=== PATIENT | male | born 1950 | race Caucasian/White ===

== ENCOUNTER 2017-06-10 16:47 | Emergency (ER) | payer MEDICARE ==
[2017-06-10] MEDS ORDERED: Caffeine Citrated 60 MG/3 ML VIAL PO SCH (17:30)
[2017-06-10] MEDS ORDERED: Ketorolac Tromethamine 30 MG/ML VIAL ONE (17:47)
[2017-06-11] MEDS ORDERED: Ketorolac Tromethamine 30 MG/ML VIAL ONE (00:50)
[2017-06-11] MEDS ORDERED: Caffeine Citrated 60 MG/3 ML VIAL PO SCH (01:00)
== END 2017-06-11 02:06 | disposition home or self-care (01) ==
LOC: ERS 16:47
DX: G97.1 Other reaction to spinal and lumbar puncture (principal); E11.9 Type 2 diabetes mellitus without complications; E03.9 Hypothyroidism, unspecified; I10 Essential (primary) hypertension; Z79.84 Long term (current) use of oral hypoglycemic drugs; Z79.899 Other long term (current) drug therapy
CPT/HCPCS: 96361; 96374; 96376; J1885

== ENCOUNTER 2017-07-02 09:46 | Observation (INO) | payer MEDICARE ==
[2017-07-02 10:40] LABS: #Basophils 0.1 thou/uL (0.0-0.2); #Eosinphils 0.2 thou/uL (0.0-0.7); #Lymphocytes 1.5 thou/uL (1.20-3.40); #Monocytes 0.7 thou/uL (0.11-0.59); #Neutrophils 6.4 thou/uL (1.40-6.50); %Basophils 1.4 % (0.0-1.0); %Lymphocytes 16.6 % (21.0-51.0); %Monocytes 8.1 % (0.0-10.0); Hematocrit 40.3 % (42.0-52.0); Mean Platelet Volume 6.6 fL (7.4-10.4); Red Blood Cell (RBC) Count 4.47 mill/uL (4.70-6.10); White Blood Cell (WBC) Count 8.9 thou/uL (4.8-10.8)
[2017-07-02 10:47] LABS: ALT (SGPT) 19 U/L (8-55); AST (SGOT) 10 U/L (5-34); Alkaline Phosphatase 106 U/L (40-150); Anion Gap 15 mmol/L (10-20); BUN (Urea Nitrogen) 31 mg/dL (8.4-25.7); Bilirubin, Total 0.4 mg/dL (0.2-1.2); CK (CPK) 54 U/L (30-200); Calc. Creatinine Clearance 0 mL/min (70-130); Calcium 9.5 mg/dL (7.8-10.44); Carbon Dioxide 24 mmol/L (23-31); Chloride 99 mmol/L (98-107); Estimated GFR-MDRD 32; Globulin 3.4 g/dL (2.4-3.5)
[2017-07-02 10:53] LABS: Troponin I Less than 0.010 ng/mL (< 0.028)
--- NOTE | 2017-07-02 10:59 | RAD ---
CHEST ONE VIEW: HISTORY: Chest pain. COMPARISON: Chest, one view, from 2014. FINDINGS: Some mild linear opacities in both lung bases. Some mild volume loss. No pneumothorax. The cardiac silhouette and mediastinal contours are similar. IMPRESSION: Linear opacities in both lung bases are new from the comparison examination and may represent focal areas of atelectasis. Follow-up two views of the chest recommended, non-emergently. POS: [facility]
--- NOTE | 2017-07-02 11:02 | RAD ---
RIGHT SHOULDER THREE VIEWS: HISTORY: A 66-year-old male with chest pain with extension of the pain into his right chest, right shoulder, and right arm. FINDINGS: Degenerative changes of the right AC joint and glenohumeral joint. No acute fracture or dislocation . There are some small, very faint, periarticular opacities, possibly some chondrocalcinosis. A somewhat triangular-shaped opacity in the right lower chest, nonspecific. IMPRESSION: Degenerative and osteoarthrosis changes, right shoulder, without acute fracture or dislocation. Manuel e scattered minimal articular or periarticular opacities, possibly some chondrocalcinosis. No acute fracture or dislocation. POS: [facility]
[2017-07-02] MEDS ORDERED: Nitroglycerin 2% Ointment 1 INCH/1 GM Packet ONE (12:28)
[2017-07-02] MEDS ORDERED: Aspirin 325 MG TAB ONE (12:28)
[2017-07-02 14:03] VITALS: BMI 37.1
[2017-07-02 14:29] LABS: Troponin I Less than 0.010 ng/mL (< 0.028)
[2017-07-02 17:07] LABS: Troponin I Less than 0.010 ng/mL (< 0.028)
[2017-07-02] MEDS ORDERED: Dextrose 50% Abboject 50 ML SYRINGE IVP PRN (17:33)
[2017-07-02] MEDS ORDERED: Insulin Regular 300 UNITS/3 ML VIAL SC PRN (17:33)
[2017-07-02] MEDS ORDERED: Dextrose 5% in Water 1,000 ML IV PRN ×2 (17:33→18:50)
[2017-07-02] MEDS: Nitroglycerin 2% Ointment 1 INCH/1 GM Packet TOP SCH (18:11)
[2017-07-02] MEDS: Insulin Regular 300 UNITS/3 ML VIAL SC PRN (18:12)
--- NOTE | 2017-07-02 18:12 | NM ---
VQ SCAN: 07/02/17 HISTORY: Elevated D-dimer. TECHNIQUE: A ventilation perfusion scan was performed using 9 millicuries Xenon 133 by inhalation for the venti lation study followed by the intravenous administration of 6.2 millicuries technetium 99m-MAA for th e perfusion scan. Correlation is made with a chest radiograph the same day. There is homogeneous tracer distribution to the lungs on both the ventilation and perfusion scans wi thout mismatched defects. No tracer retention is seen on the washout phase of the ventilation study. IMPRESSION: Normal exam. POS: [facility]
[2017-07-02] MEDS ORDERED: Ondansetron HCl/PF 4 MG/2 ML Vial IVP PRN (18:15)
[2017-07-02] MEDS ORDERED: Mag-Al 1200 mg/1200 mg/30 ML UDCUP PO PRN (18:15)
[2017-07-02] MEDS ORDERED: Dextrose 50% Abboject 50 ML SYRINGE SLOW IVP PRN (18:50)
[2017-07-02] MEDS: traMADol HCl 50 MG TAB PO PRN (19:53)
[2017-07-02] MEDS: Acetaminophen 325 MG TAB PO PRN (19:53)
[2017-07-02] MEDS: glipiZIDE 5 MG TAB PO SCH (19:55)
[2017-07-02] MEDS: Sodium Chloride 0.9% 1,000 ML IV SCH (19:55)
--- NOTE | 2017-07-02 20:37 | PDOC.EVN ---
Event Note - Event Note Event Note: Mr Duarte [place] [facility] [place] of right sided chest discomfort spreading to his Right arm for the last 4 days. The pain is reproducible by moving his RUE with ROM manuevers. He also has tenderness in his wrist and finger joints. Additionally he complains of point tenderness in the lumbar region. His troponins thus far are negative and with no EKGs, ACS less likely but will continue to monitor on telemetry. He has an elevated D-Dimer but his V/ Q is normal. He has no hemodynamic changes nor does he have a widened mediastinum. Will check BP on both extremities and continue to monitor. An ESR has been ordered. He may require further imaging of his Lumbar or thoracic spine to rule out diskitis or an inflammatory process.
--- NOTE | 2017-07-02 20:47 | HP ---
DATE OF OBSERVATION: 07/02/2017 PRIMARY CARE PHYSICIAN: Dr. Kim Quinonez. REASON FOR OBSERVATION PLACEMENT: Chest discomfort as well as back pain and right upper extremity w eakness and swelling. HISTORY OF PRESENT ILLNESS: Mr. Tyler Duarte is a 66-year-old male with a history of mild coronary ar scarlet disease per cardiac catheterization in 2013, hypertension, hyperlipidemia, diabetes mellitus ty pe 2, as well as severe osteoarthritis, who presents to the emergency room initially, stating he had some chest discomfort on the right side of his chest, which began 4 days ago. The patient states i t since then has radiated to his right shoulder and his right arm. He does complain of some back pa in in the lumbar area. He states he has some pain on range of motion in his right shoulder and is u nable to perform a full range of motion exercises on that. Denies any fevers or cough. He states adele jain has had back pain before and actually as an outpatient received a lumber injection, which accordin g to the patient had complications. He was evaluated for a bloody patch; however, due to the anatom y of the spine, this was not performed. He denies any nausea, vomiting, abdominal discomfort. He s tates he has never had any other problems in the past in regards to his musculoskeletal system. How ever, reviewing previous records, the patient has had a rotator cuff tear. In 2013, he had a carpal tunnel release. Given his presentation, he was then transferred to [facility] for a higher level of care. He did have an elevated D-dimer, prompting a VQ scan, which was negative for pulmonary em bolism. Currently, he is resting comfortably. He is in no acute distress, but he does state he has pain in his right arm as well as point tenderness in his back. Negative urinary symptoms or abdomi nal pain has been reported. PAST MEDICAL HISTORY: 1. Hypertension. 2. Diabetes mellitus type 2. 3. Mild coronary artery disease per catheterization in 2013. 4. Osteoarthritis. PAST SURGICAL HISTORY: 1. Right knee replacement. 2. Hernia repair. 3. Rotator cuff surgery. 4. Left knee replacement. 5. Appendectomy. 6. Tonsillectomy. CODE STATUS: He is full code. SOCIAL HISTORY: He denies any alcohol use, no tobacco use, no illicit drug use. CURRENT MEDICATIONS: 1. CoQ10 of 200 mg p.o. daily. 2. Claritin 10 mg p.o. daily. 3. Ketorolac 1-2 tablets p.o. q.8 hours p.r.n. 4. Glucotrol 10 mg p.o. b.i.d. 5. Levothyroxine 75 mcg p.o. daily. 6. Celebrex 200 mg p.o. daily. 7. Aspirin 650 mg p.o. daily. 8. Benicar 20/12.5 mg p.o. daily. ALLERGIES: HYDROCODONE and CODEINE. FAMILY HISTORY: No history of coronary disease. REVIEW OF SYSTEMS: The following complete review of systems was negative, unless otherwise mentione d in the HPI or below: Constitutional: Weight loss or gain, sense of well-being, ability to conduct usual activities, exer cise tolerance. Skin/Breast: Rash, itching, changes in hair growth or loss, nail changes, breast lumps, tenderness, swelling, nipple discharge. Eyes: Vision, double vision, tearing, blind spots, pain. ENT/Mouth: Headaches (location, time of onset, duration, precipitating factors), vertigo, li ghtheadedness, injury. Vision, double vision, tearing, blind spots, pain, nose bleeding, colds, obst ruction, discharge, dental difficulties, gingival bleeding, dentures, neck stiffness, pain, tenderne ss, masses in thyroid or other areas. Cardiovascular: Precordial pain, substernal distress, palpit ations, syncope, dyspnea on exertion, orthopnea, nocturnal paroxysmal dyspnea, edema, cyanosis, hype rtension, heart murmurs, varicosities, phlebitis, claudication. Respiratory: Pain, shortness of br eath, wheezing, stridor, cough, hemoptysis, fever or night sweats. Gastrointestinal: Poor appetite , dysphagia, indigestion, abdominal pain, heartburn, eructation, nausea, vomiting, hematemesis, baljeet dice, constipation, or diarrhea, abnormal stools (low-colored, tarry, bloody, greasy, foul smelling ), flatulence, hemorrhoids, recent changes in bowel habits. No bowel or bladder incontinence. Kristi tourinary: Urgency, frequency, dysuria, nocturia, hematuria, polyuria, oliguria, unusual (or change in) color of urine, stones, hesitancy, change in size of stream, dribbling, acute retention or inco ntinence, libido, potency. Musculoskeletal: Pain, swelling, redness or heat of muscles or joints, limitation, of motion, muscular weakness, atrophy, cramps. Neurologic/Psychiatric: Convulsions, paralyses, tremor, incoordination, parasthesias, difficulties with memory of speech, sensory or motor disturbances, or muscular coordination (ataxia, tremor), emo tional problems, anxiety, depression, previous psychiatric care, unusual perceptions, hallucinations . Allergy/Immunologic: Skin rash, anemia, bleeding tendency, polydipsia, polyuria, intolerance to heat or cold. PHYSICAL EXAMINATION: CONSTITUTIONAL/VITAL SIGNS: Blood pressure is 136/84, O2 saturation 95% on room air, respirations a re 20, pulse is 90, and temperature is 99.0. GENERAL: He is in no acute distress, nontoxic appearing. EYES: Pupils are round and reactive to light and accommodation. No scleral icterus, no pale conjun ctivae. ENT/MOUTH: Moist oral mucosa. RESPIRATORY: Equal chest wall expansion. No wheezes, rhonchi, or rales. CARDIOVASCULAR: S1 and S2 present. No murmurs, gallops, or rubs. No chest wall tenderness. GASTROINTESTINAL: Soft, nontender, nondistended. Bowel sounds are present in all 4 quadrants. MUSCULOSKELETAL: He does have tenderness at the L3 area as well as the L4-L5 area. EXTREMITIES: H e does have tenderness on palpation of his right wrist. He has decreased range of motion in his rig ht upper extremity, he is unable to perform full abduction of his right upper extremity. LYMPHATIC: No swollen painful cervical or axillary nodes. NEUROLOGIC: No ptosis, no facial asymmetry, no tongue deviation or jaw protrusion, no focal deficit s. PSYCHIATRIC: He is awake, alert to time, place, person, answers appropriately. SKIN: Normal skin turgor. LABORATORY AND X-RAY FINDINGS: Taken in the emergency room and reviewed by me show WBC of 8.9, hemo globin 13.5, hematocrit 40.3, and platelet count 244,000. D-dimer is 1.36. A metabolic panel shows sodium of 133, potassium 4.6, chloride 99, carbon dioxide 24, anion gap is 15, BUN is 31, creatinin e 2.0, glucose 399. AST and ALT is 10 and 19. Troponin 3 sets are negative and less than 0.01. C- reactive protein is 15.88. BNP is less than 10. A VQ scan performed showed a normal scan. Shoulder x-ray showed degenerative osteoarthrosis changes in the right shoulder without an acute fracture or dislocation. There are some scattered minimal a rticular and periarticular opacities, some chondrocalcinosis. Chest x-ray done in the emergency lev m revealed linear opacities in both lung bases. No enlarged cardiac silhouette. EKG done in the em ergency room revealed normal sinus rhythm, no acute ST-segment abnormalities, no interval prolongati on. ASSESSMENT AND PLAN: Mr. Tyler Duarte is a 66-year-old male with a past medical history of mild coron sarthak artery disease per catheterization in 2013, hypertension, hyperlipidemia, and diabetes mellitus type 2, as well as extensive osteoarthritis, who presents to the emergency room initially complainin g of chest pain as well as back pain and shoulder pain. 1. Chest pain. At this time, given his cardiac risk factors as well as clinical presentation, he w ill be placed in observation onto the telemetry floor. Three sets of cardiac enzymes have all been ordered, they are negative. At this time given that he has already got a VQ scan he is unable to ge t a nuclear stress test at this time for risk stratification. We will consult Cardiology to see if any further intervention is warranted, although the myriad of his symptoms may point toward noncardi ac etiology. We will start the patient on aspirin and beta-bina therapy. We will check a fastin g lipid profile. 2. Back pain and osteoarthritis. It is unclear the exact etiology of his symptoms. He does have e xtensive osteoarthritis is seen on shoulder x-ray. He may have an underlying autoimmune disorder. We will check a rheumatoid factor DINAH as well as HLA-B27 given the location of some of his discomfor t. We will obtain a consultation with Dr. Trejo to do further imaging is warranted. He may requi re an MRI of his lumber spine, possibly cervical spine. 3. Resume the patient's home medications except for Benicar and metformin. 4. Acute kidney injury. We will strart the patient IV fluids may be hemodynamically mediated. 6. N.p.o. after midnight in case procedures warranted. 7. P.r.n. order set. 8. Deep venous thrombosis prophylaxis. 9. Full code. 10. I have explained all this to the patient at bedside. He is agreeable to plan of treatment. Al l questions have been answered. 11. The patient's further hospital course will be dictated by his clinical course while here. The patient's further hospital course will be dictated by his clinical course while here.
[2017-07-02] MEDS: Docusate 100 MG CAP PO PRN (22:30)
[2017-07-02] MEDS: Bisacodyl 5 MG TAB PO PRN (22:30)
[2017-07-03] MEDS: traMADol HCl 50 MG TAB PO PRN ×4 (02:48→21:45)
[2017-07-03] MEDS: Acetaminophen 325 MG TAB PO PRN ×4 (02:49→21:46)
[2017-07-03 04:55] LABS: Anion Gap 12 mmol/L (10-20); BUN (Urea Nitrogen) 28 mg/dL (8.4-25.7); Calc. Creatinine Clearance 71 mL/min (70-130); Calcium 9.6 mg/dL (7.8-10.44); Carbon Dioxide 25 mmol/L (23-31); Chloride 101 mmol/L (98-107); Cholesterol 182 mg/dl (< 200 Desired); Estimated GFR-MDRD 42; LDL Cholesterol, Calculated 114 mg/dL
[2017-07-03] MEDS: Nitroglycerin 2% Ointment 1 INCH/1 GM Packet TOP SCH (05:38)
[2017-07-03] MEDS: Levothyroxine Sodium 75 MCG TAB PO SCH (05:41)
[2017-07-03] MEDS: Insulin Regular 300 UNITS/3 ML VIAL SC PRN ×4 (05:41→20:51)
[2017-07-03] MEDS: predniSONE 20 MG TAB PO SCH (09:09)
[2017-07-03] MEDS: Docusate 100 MG CAP PO PRN ×2 (09:09→20:48)
[2017-07-03] MEDS: Bisacodyl 5 MG TAB PO PRN ×2 (09:09→20:49)
[2017-07-03] MEDS: Carvedilol 6.25 MG TAB PO SCH ×2 (09:11→17:00)
[2017-07-03] MEDS: Sodium Chloride 0.9% 1,000 ML IV SCH (09:14)
[2017-07-03] MEDS: Fluticasone Propionate Nasal Spray 16 gm Bottle NASAL SCH (09:15)
[2017-07-03] MEDS: glipiZIDE 5 MG TAB PO SCH ×2 (09:16→16:59)
--- NOTE | 2017-07-03 13:19 | CON ---
DATE OF CONSULTATION: 07/03/2017 HISTORY OF PRESENT ILLNESS: The patient is a pleasant 66-year-old gentleman who presents for evaluation of chest discomfort. The patient has a previous history of coronary artery disease. He was seen initially in 12/2013. He presented with left-sided chest discomfort. The patient subsequently underwent a cardiac catheterization. He was found to have normal left ventricular systolic function, estimated ejection fraction of 50-55%. The LAD had a 20% proximal stenosis. There were 2 small caliber diagonal branches which had a 50 % stenotic lesions. There was a 90% distal lesion in the left circumflex artery. The patient has subsequently been placed on medical therapy. He has had difficulty with back discomfort. He has previously had a spinal tap. Approximately a week ago he started developing left-sided chest discomfort that radiated to his right arm. This has been a persistent discomfort for the past several days. It now is primarily in his right arm. He is extremely weak and cannot lift anything with his right arm. The patient denies any other areas of weakness. PAST MEDICAL HISTORY: 1. Hypertension. 2. Diabetes mellitus. 3. Hypercholesterolemia. PAST SURGICAL HISTORY: Knee surgery, cholecystectomy, hernia surgery, amd shoulder surgery. SOCIAL HISTORY: He is a nonsmoker. MEDICATIONS ON ADMISSION: Benicar 1 tablet daily, Synthroid 75 mcg, Celebrex 200 daily, aspirin 650 daily, potassium 5 b.i.d., glipizide 10 b.i.d. ALLERGIES: CODEINE and OXYCODONE. REVIEW OF SYSTEMS: Ten point system noticeable for persistent back pain and abdominal discomfort. No history of easy bruising or bleeding. Ten-point system otherwise unremarkable except for headaches. PHYSICAL EXAMINATION: GENERAL: This is an ill-appearing gentleman in no acute distress. VITAL SIGNS: Blood pressure 148/70. NECK: No jugular venous distention, no carotid bruits. LUNGS: Clear to auscultation. HEART: Regular rate and rhythm, normal S1, S2, no murmurs. ABDOMEN: Nondistended. EXTREMITIES: Showed trace edema. NEUROLOGIC: There is marked weakness in his right upper extremity. VASCULAR: Radial pulses 2+. LABORATORY: His sodium is 134, potassium 4.3, chloride 101, bicarbonate 25, BUN 20, creatinine 1.6, glucose is 300. His cholesterol was 182, LDL 114. White blood cell count 8.9, hemoglobin 13.5, hematocrit 40.3, platelets 244. His EKG reveals normal sinus rhythm with a normal ECG, VQ scan with low probability for pulmonary embolus. IMPRESSION: 1. Atypical chest pain with right arm weakness. 2. History of coronary artery disease. 3. Renal insufficiency. 4. Hypertension. 5. Diabetes mellitus. 6. Hypercholesterolemia. This gentleman presents with atypical chest discomfort. His cardiac enzymes reveal no evidence of myocardial infarction. His EKG is unremarkable. The pain has been persistent for several days. The discomfort is primarily right- sided and associated with marked weakness of the right arm. I would recommend neurological evaluation. We will schedule outpatient follow up including stress testing. We will follow this patient with you through his hospitalization. The patient should be on lipid lowering medication. I will start Erma. KAMILAH
--- NOTE | 2017-07-03 13:22 | PDOC.PN ---
- Subjective Encounter Start Date: 07/03/17 Encounter Start Time: 13:19 Patient seen at bedside. No further chest discomfort, but still having RUE pain and back pain. - Objective Resuscitation Status: Resuscitation Status FULL:Full Resuscitation MAR Reviewed: Yes Vital Signs & Weight: Vital Signs (12 hours) Temp Pulse Resp BP BP Pulse Ox 07/03/17 12:07 98.5 F 92 16 121/68 90 L 07/03/17 09:11 148/71 H 07/03/17 08:01 98.8 F 93 18 148/71 H 93 L 07/03/17 02:49 99 18 127/78 Weight Weight 259 lb I&O: 07/02/17 07/03/17 07/04/17 06:59 06:59 06:59 Intake Total 500 300 Output Total 700 250 Balance -200 50 Result Diagrams: 07/02/17 10:20 07/03/17 04:00 Additional Labs: Accuchecks 07/02/17 07/02/17 21:07 16:30 POC Glucose 386 H 304 H Phys Exam - Physical Examination Constitutional: NAD HEENT: moist MMs Neck: no JVD Respiratory: clear to auscultation bilateral Cardiovascular: RRR Gastrointestinal: soft Musculoskeletal: pulses present Tenderness in the thoracic spine, generalized tenderness in lumbar spine Neurological: moves all 4 limbs Psychiatric: A&O x 3 Skin: no rash Dx/Plan (1) Chest pain Code(s): R07.9 - CHEST PAIN, UNSPECIFIED Status: Resolved (2) Hypertension Code(s): I10 - ESSENTIAL (PRIMARY) HYPERTENSION Status: Chronic (3) Acute kidney injury Code(s): N17.9 - ACUTE KIDNEY FAILURE, UNSPECIFIED Status: Resolved (4) Back pain Code(s): M54.9 - DORSALGIA, UNSPECIFIED Status: Acute Qualifiers: Back pain location: thoracic back pain Chronicity: chronic (5) Sleep apnea Code(s): G47.30 - SLEEP APNEA, UNSPECIFIED Status: Suspected - Plan cont current plan of care, nursing home social worker, out of bed/ambulate * Appreciate cardiology input. Continue with statin and Coq-10. Stress test as an outpatient * D/C IV Fluids * Await neurology input. He will likely require further imaging of his back due to his history of spinal stenosis. No evidence of infection at this time. He may have a component of an inflammatory process (elevated CRP, diskitis) * CPAP QHS * OOB/Ambulate
[2017-07-03] MEDS ORDERED: Ubidecarenone 50 MG CAP PO SCH (21:00)
--- NOTE | 2017-07-04 01:44 | CON ---
DATE OF CONSULTATION: 07/03/2017 REFERRING PROVIDER: Dr. Rafat Rodriguez. REASON FOR CONSULTATION: Right shoulder pain, pain going down to right arm. HISTORY OF PRESENT ILLNESS: Mr. Duarte is a pleasant 66-year-old male who has been consul allison for evaluation of right shoulder pain with pain radiating down to the right arm. Patient report s that approximately 4-5 days ago, he started having pain in his right side of the chest, this is sl owly moved up to involve the right shoulder, then it started moving down to the right elbow and righ t hand. 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 He also noticed very restricted range of randi on. He notes that over the past 24 hours, he is also started noticing pain in his lower back and th at goes across both of his hips. He denies any numbness, tingling or weakness associated with this pain except cannot make a fist on the right side. He denies similar pain on the left upper extremit y. He also denies any changes in vision, numbness or tingling on the face, dysarthria, dysphagia, h eadaches, difficulty with balance or difficulty with bowel or bladder function. He denies any neck pain. He reports that recently he had episodes of sciatica on his left lower extremity. He had und ergone MRI of L-spine, which had shown multilevel degenerative changes. He had undergone epidural i njections in the lumbar spine, which resulted in CSF leak and had severe headaches for 2 days, this has happened about a month ago. He has fully recovered from this episode. PAST MEDICAL HISTORY: Significant for hypertension, diabetes, coronary artery disease, osteoarthrit is. PAST SURGICAL HISTORY: Significant for right knee replacement, hernia repair, rotator cuff surgery, left knee replacement, appendectomy, tonsillectomy, prior lumbar spine surgery. SOCIAL HISTORY: He denies smoking, alcohol use or illicit drug use. 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 CURRENT MEDICATIONS: Please review MAR. ALLERGIES: HYDROCODONE and CODEINE. FAMILY HISTORY: Noncontributory. REVIEW OF SYSTEMS: As mentioned above in the HPI, otherwise negative. PHYSICAL EXAMINATION: VITAL SIGNS: Blood pressure 132/73, pulse of 98, temperature of 98.7, respirations are 20, O2 sats of 92% on room air. GENERAL: Well-developed, well-nourished male, in no apparent distress. RESPIRATORY: Clear to auscultation bilaterally. CARDIOVASCULAR: Regular rate and rhythm. NEUROLOGIC: Mental status: The patient is awake, alert, oriented x3. Speech and language: Fluent speech. Cranial nerves: Pupils are 3 mm and reactive. Visual godoy are intact. Extraocular mus cles are intact. No nystagmus is noted. Face is symmetric. Tongue and uvula are midline. Motor e xam showed normal tone and bulk with 5/5 strength in both upper and lower extremities. Sensory: Se nsation is intact and symmetric. Deep tendon reflexes 2+ reflexes in both upper and lower extremiti es. Babinski: Plantar responses flexion bilaterally. Coordination intact to [id number] an d finger tapping bilaterally. Gait and Romberg are normal. LABORATORY DATA: Reviewed, which included CBC, CMP, sed rate, CRP, lipid profile and rheumatoid fac tor, which is significant for sed rate of 36, CRP of 15.88, total cholesterol of 182, LDL of 114 and HDL of 41, triglycerides of 133, otherwise unremarkable. IMAGING STUDIES: Right shoulder x-ray was done, which showed degenerative and osteoarthritic change s in the right shoulder. IMPRESSION: Polyarthralgia. Mr. Duarte is a pleasant 66-year-old male, who presented with a 4-5-day history of pain in the right shoulder that has moved down to different places on the right side. Based on the present ation of the symptoms, this is likely suggestive of polyarthralgia, may be of inflammatory type. Th ere is also a concern for polymyalgia rheumatica. His sed rate and CRP both are significantly eleva allison. At this time, I would recommend starting patient on Medrol Dosepak. He needs to be referred t o Rheumatology as an outpatient for possible evaluation of polymyalgia rheumatica. He will follow u p with Rheumatology as an outpatient. No further neurological workup needed from my standpoint, I d o not think by obtaining MRI C-spine would be useful as he does not complain of any radicular pain. Thank you for your consultation.
[2017-07-04] MEDS: Levothyroxine Sodium 75 MCG TAB PO SCH (05:05)
[2017-07-04] MEDS: traMADol HCl 50 MG TAB PO PRN ×2 (05:05→12:25)
[2017-07-04] MEDS: Acetaminophen 325 MG TAB PO PRN ×2 (05:05→12:25)
[2017-07-04] MEDS: Insulin Regular 300 UNITS/3 ML VIAL SC PRN ×2 (05:54→12:40)
[2017-07-04] MEDS ORDERED: Aspirin 81 mg Enteric Coated Tablet PO SCH (09:00)
[2017-07-04] MEDS: Fluticasone Propionate Nasal Spray 16 gm Bottle NASAL SCH (09:29)
[2017-07-04] MEDS: predniSONE 20 MG TAB PO SCH (09:30)
[2017-07-04] MEDS: Carvedilol 6.25 MG TAB PO SCH (09:30)
[2017-07-04] MEDS: glipiZIDE 5 MG TAB PO SCH (09:31)
[2017-07-04 11:11] VITALS: BP 134/68; TEMP 98.5
--- NOTE | 2017-07-04 11:45 | PDOC.PN ---
- Subjective Encounter Start Date: 07/04/17 Encounter Start Time: 11:35 Subjective: Pain in chest and arm now resolved, moved to anterior abdominal wall , -: severe pain with any core movement or bracing. No GI symptoms except -: constipation from the tramadol. - Objective Resuscitation Status: Resuscitation Status FULL:Full Resuscitation MAR Reviewed: Yes Vital Signs & Weight: Vital Signs (12 hours) Temp Pulse Resp BP BP Pulse Ox 07/04/17 10:35 98.5 F 85 20 134/68 92 L 07/04/17 09:30 127/71 07/04/17 08:00 98.8 F 81 20 07/04/17 07:15 98.8 F 81 20 127/71 93 L 07/04/17 04:30 83 18 146/79 H 07/03/17 23:55 89 18 92 L Weight Weight 259 lb I&O: 07/03/17 07/04/17 07/05/17 06:59 06:59 06:59 Intake Total 500 910 Output Total 700 250 Balance -200 660 Result Diagrams: 07/02/17 10:20 07/03/17 04:00 Additional Labs: Accuchecks 07/04/17 07/04/17 07/03/17 10:39 05:54 20:44 POC Glucose 265 H 251 H 390 H 07/03/17 07/03/17 16:32 11:30 POC Glucose 487 H 329 H Phys Exam - Physical Examination Constitutional: NAD HEENT: moist MMs Respiratory: no wheezing, no rales, no rhonchi, clear to auscultation bilateral Cardiovascular: RRR, no significant murmur Gastrointestinal: soft, non-tender, positive bowel sounds Neurological: non-focal, moves all 4 limbs Psychiatric: normal affect, A&O x 3 Dx/Plan (1) Chest pain Code(s): R07.9 - CHEST PAIN, UNSPECIFIED Status: Resolved (2) Polymyalgia Code(s): M35.3 - POLYMYALGIA RHEUMATICA Status: Acute (3) Hypertension Code(s): I10 - ESSENTIAL (PRIMARY) HYPERTENSION Status: Chronic (4) Sleep apnea Code(s): G47.30 - SLEEP APNEA, UNSPECIFIED Status: Suspected (5) Acute kidney injury Code(s): N17.9 - ACUTE KIDNEY FAILURE, UNSPECIFIED Status: Resolved - Plan Continue steroids. Discharge home. O/P cardiology f/u and stress test. O/P -: rheumatology followup. * . - Discharge Day Encounter end time: 12:50
--- NOTE | 2017-07-04 14:12 | DIS ---
PRIMARY CARE PHYSICIAN: Dr. Kim Quinonez. ADMISSION DIAGNOSES: 1. Chest pain. 2. Osteoarthritis. 3. Right upper extremity pain. 4. Acute kidney injury. 5. Hypertension. 6. Diabetes mellitus type 2. 7. Mild coronary artery disease. DISCHARGE DIAGNOSES: 1. Chest pain, resolved, musculoskeletal. 2. Right upper extremity pain, resolved. 3. Abdominal wall pain. 4. Possible polymyalgia rheumatica. 5. Acute kidney injury, improved. 6. Diabetes mellitus type 2. 7. Hypertension. 8. Mild coronary artery disease. CONSULTATIONS: 1. Cardiology, Dr. Silva. 2. Neurology, Dr. Ellie Cervantes. PROCEDURES: 1. Pulmonary ventilation perfusion scan showing no evidence for pulmonary embolism. 2. Shoulder x-ray showing degenerative and osteoarthritic changes without acute fracture dislocatio n. PERTINENT LABORATORY DATA: D-dimer elevated at 1.36. Creatinine originally elevated at 2.06, now d own to 1.65, which is near his recent baseline. C-reactive protein elevated at 15.88. ESR elevated at 36. DINAH screen negative. Rheumatoid factor negative. SUMMARY OF HOSPITAL COURSE: This is a 66-year-old male with a history of mild coronary artery disea se, hypertension, diabetes and osteoarthritis who presented with right-sided chest discomfort of 4 d ays duration. Then, it started moving into his right shoulder and right arm. He also has some chief clinical dietitian danitza low back pain. The patient did have an elevated D-dimer, so a VQ scan was done, which was negat antonio. He had no elevation of his cardiac markers. Cardiology was consulted. Dr. Silva determine d that this was not cardiac pain in origin, but he did set him up for an outpatient stress test and further cardiology work up as an outpatient. Dr. Ellie Cervantes was consulted for Neurology. After loo nidia at previous imaging, he determined that this was not primarily secondary to nerve impingement s yndrome from his back, more likely a rheumatologic problem with his elevated ESR and CRP. He did st art the patient on prednisone and recommended that the patient follow up with the Rheumatology as an outpatient. During the hospitalization, the pain stopped in his chest, moved into his right arm wh ere it was fairly severe at the time of admission and then overnight the arm pain completely resolve d and patient had pain in his anterior abdominal wall with any sort of core activation or movement. He never had any nausea, vomiting or abdominal tenderness, however. Other than the abdominal pain with any sort of twisting motions, patient was doing well the day of discharge and is being discharg ed home. DISCHARGE MANAGEMENT: Discharge home. Follow up with Dr. Kim Quinonez in the next week and with R heumatology as soon as possible and also to follow up with Dr. Silva as scheduled for further car diac evaluation and stress testing. DISCHARGE MEDICATIONS: 1. Coenzyme Q10 200 mg daily. 2. Saw [place] 160 mg daily. 3. Claritin 10 mg daily. 4. Fluticasone 2 sprays each nostril daily. 5. Glipizide 10 mg twice a day. 6. Potassium citrate 5 mEq twice a day. 7. Levothyroxine 75 mcg daily. 8. Celebrex 200 mg daily. 9. Folic acid 2 tablets daily. 10. Benicar HCT 1 tablet daily. 11. Tramadol 50 mg 1-2 tablets every 6 hours as needed for pain, 60 tablets dispensed. 12. Prednisone 5 mg tablets 2 tablets twice a day for 5 days, then 1 tablet twice a day for 5 days and then 1 tablet daily until he sees the care rep, 50 tablets dispensed. 13. Senna 2 tablets at night as needed for constipation. 14. Crestor 20 mg at night. 15. Omeprazole 40 mg daily, 30 tablets dispensed. 16. Colace 100 mg twice a day as needed for constipation, 60 tablets dispensed. 17. Carvedilol 6.25 mg twice a day, 60 tablets dispensed. 18. Dulcolax 10 mg twice a day as needed for constipation, 60 tablets dispensed. 19. Aspirin 81 mg daily, 30 tablets dispensed. The patient is to stop his full dose aspirin and in his oral Toradol. DISCHARGE DIET: Diabetic diet. DISCHARGE ACTIVITY: As tolerated.
== END 2017-07-04 13:57 | disposition home or self-care (01) ==
LOC: SCSER 09:46 → 2SW 12:37
PROVIDERS: ADMIT Hospitalist; ATTEND Hospitalist
DX: R07.89 Other chest pain (principal); M19.90 Unspecified osteoarthritis, unspecified site; M79.601 Pain in right arm; N17.9 Acute kidney failure, unspecified; I10 Essential (primary) hypertension; E11.9 Type 2 diabetes mellitus without complications; I25.10 Atherosclerotic heart disease of native coronary artery without angina pectoris; R10.9 Unspecified abdominal pain; M54.5 Low back pain; G89.29 Other chronic pain; E78.5 Hyperlipidemia, unspecified; G47.30 Sleep apnea, unspecified; Z79.84 Long term (current) use of oral hypoglycemic drugs; Z79.82 Long term (current) use of aspirin; Z79.51 Long term (current) use of inhaled steroids; Z79.52 Long term (current) use of systemic steroids; Z79.899 Other long term (current) drug therapy; Z88.5 Allergy status to narcotic agent; Z96.653 Presence of artificial knee joint, bilateral; Z90.49 Acquired absence of other specified parts of digestive tract; Z90.89 Acquired absence of other organs; Z98.890 Other specified postprocedural states
CPT/HCPCS: 71010; 73030; 78582; 80048 ×2; 80053; 80061; 82550; 82553; 82962 ×3; 83880; 84403; 84484 ×2; 85025; 85379; 85652; 86038; 86140; 86430; 86812; 93005; 94660 ×2; 96360; 96361 ×2; 99285; A9540; A9558; G0378; 36415; 36416; J1815; J7506

== ENCOUNTER 2017-08-04 14:22 | Outpatient (CLI) | payer MEDICARE ==
--- NOTE | 2017-08-04 18:31 | RAD ---
TWO VIEWS CHEST: HISTORY: Polymyalgia. FINDINGS: Comparison is made to the portable exam of 07/02/2017. That exam revealed infiltrate and/or atelecta tic changes in both lung bases. On today's exam, there continues to be linear opacity in the right lung base suggestive of atelectasi s, although patchy infiltrate cannot be excluded. Linear atelectatic changes in the left lung noted previously are less pronounced today. No effusion. No other change. IMPRESSION: Bibasilar opacities remain although less prominent than on the prior portable exam of 07/02/2017. Bi basilar atelectasis and/or infiltrative changes cannot be excluded. POS: [facility]
== END 2017-08-04 14:23 | disposition home or self-care (01) ==
LOC: SCSRAD 14:22
PROVIDERS: ATTEND Obstetrics & Gynecology
DX: M35.3 Polymyalgia rheumatica (principal)
CPT/HCPCS: 71020

== ENCOUNTER 2017-08-14 20:30 | Outpatient (CLI) | payer MEDICARE | END 2017-08-14 20:31 | disposition home or self-care (01) | LOC: SLEEPLAB 20:30 | PROVIDERS: ATTEND Obstetrics & Gynecology | DX: G47.33 Obstructive sleep apnea (adult) (pediatric) (principal) | CPT/HCPCS: 95811 ==

== ENCOUNTER 2017-08-18 11:00 | Emergency (ER) | payer MEDICARE ==
--- NOTE | 2017-08-18 14:59 | ULT ---
RIGHT UPPER EXTREMITY VENOUS DUPLEX EXAM: Date: 08/18/17 Veins of right upper extremity evaluated with ultrasound Doppler with spectral analysis and compressi on. HISTORY: Right upper extremity pain and edema. FINDINGS: Internal jugular vein shows normal flow and compression. Right subclavian vein shows normal blood danish w at Doppler. The axillary vein, brachial vein, basilic vein, and cephalic veins on the right show no rmal compression and blood flow. Radial and ulnar veins show normal flow and compression. IMPRESSION: No evidence of right upper extremity venous thrombosis. POS: [facility]
[2017-08-18] MEDS ORDERED: Furosemide 40 MG TAB ONE (15:36)
== END 2017-08-18 15:55 | disposition home or self-care (01) ==
LOC: ERS 11:00
DX: M79.89 Other specified soft tissue disorders (principal); E11.9 Type 2 diabetes mellitus without complications; E03.9 Hypothyroidism, unspecified; I10 Essential (primary) hypertension; Z79.4 Long term (current) use of insulin

== ENCOUNTER 2017-11-03 13:34 | Outpatient (CLI) | payer MEDICARE ==
--- NOTE | 2017-11-03 16:10 | MRI ---
MRI CERVICAL SPINE WITHOUT CONTRAST: Date: 11/03/17 HISTORY: M47.812, cervical spondylosis. COMPARISON: None. FINDINGS: There cerebellar tonsils terminate above the foramen magnum. There is hemangioma within the C7 verte bral body. No acute fracture. No malalignment. The paraspinal musculature appears normal. There are some erosions of the dorsal margin of the odontoid process in the transverse segment of the dens. Levels are as follows: C2-3: Low grade uncinate process hypertrophy. Mild facet arthropathy. No significant neural foraminal or sp inal canal narrowing. C3-4: Moderate uncinate process hypertrophy. Moderate bilateral facet arthropathy. This causes mild bilater al neural foraminal narrowing. C4-5: Mild uncinate process hypertrophy. Moderate facet arthropathy. Moderate bilateral neural foraminal na rrowing. There is low grade disc bulge. The spinal canal measures approximately a centimeter. C5-6: Mild to moderate facet arthrosis. Moderate left-sided neural foraminal narrowing. Mid uncinate proces s hypertrophy. C6-7: Low grade left-sided neural foraminal narrowing due to facet arthrosis. Low grade circumferential pos terior disc osteophyte complex. Right paracentral posterior disc bulge. No significant neural foramin al or spinal canal narrowing. C7-T1: There is mild disc desiccation. No significant neural foraminal or spinal canal narrowing. Low grade right central and paracentral posterior disc bulge. IMPRESSION: 1. Low grade spondylosis predominantly due to hypertrophic facet arthrosis causing some areas of mil d neural foraminal narrowing. No significant spinal canal narrowing. 2. Hemangioma within the C7 vertebral body. 3. Erosion on the dorsal margin of the odontoid process at the transverse ligament of the dens, like ly degenerative in nature. POS: [facility]
== END 2017-11-03 13:35 | disposition home or self-care (01) ==
LOC: MRI 13:34
PROVIDERS: ATTEND Psychiatry & Neurology Neurology
DX: M47.812 Spondylosis without myelopathy or radiculopathy, cervical region (principal); D18.09 Hemangioma of other sites
CPT/HCPCS: 72141

== ENCOUNTER 2018-03-06 10:26 | Emergency (ER) | payer MEDICARE ==
[2018-03-06 11:24] LABS: Blood, Urine Large (Negative); Glucose, Urine (Dipstick) Negative (Negative); Leukocyte Negative (Negative); Protein, Urine (Dipstick) 100 mg/dL (Neg-Trace); Specific Gravity, Urine 1.025 (1.005-1.030); Urobilinogen 0.2 mg/dL (0.2-1.0); pH, Urine 5.5 (5.0-9.0)
[2018-03-06 11:25] LABS: Clarity Cloudy (Clear)
[2018-03-06 11:26] LABS: Bilirubin Unable to Interpret (Negative); Nitrite Unable to Interpret (Negative)
[2018-03-06 11:39] LABS: RBC/HPF GREATER THAN 50-TNTC HPF (0-3)
[2018-03-06 11:40] LABS: Bacteria/HPF None Seen HPF (None Seen); Hyaline Casts/LPF NONE SEEN LPF (0-3 Hyaline); Squamous Epithelial None Seen HPF (0-3)
[2018-03-06 11:56] LABS: #Basophils 0.1 thou/uL (0.0-0.2); #Eosinphils 0.2 thou/uL (0.0-0.7); #Lymphocytes 1.7 thou/uL (1.20-3.40); #Monocytes 0.7 thou/uL (0.11-0.59); #Neutrophils 4.6 thou/uL (1.40-6.50); %Basophils 0.8 % (0.0-1.0); %Eosinophils 3.1 % (0.0-10.0); %Lymphocytes 23.3 % (21.0-51.0); %Neutrophils 63.9 % (42.0-75.0); Hemoglobin 14.4 g/dL (14.0-18.0); Mean Corpuscular Hemoglobin 29.6 pg (27.0-31.0); Mean Platelet Volume 6.7 fL (7.4-10.4); Platelet Count 227 thou/uL (130-400); RBC Distribution Width 14.3 % (11.5-14.5); Red Blood Cell (RBC) Count 4.88 mill/uL (4.70-6.10); White Blood Cell (WBC) Count 7.2 thou/uL (4.8-10.8)
[2018-03-06 12:26] LABS: ALT (SGPT) 16 U/L (8-55); AST (SGOT) 13 U/L (5-34); Albumin 3.9 g/dL (3.4-4.8); Alkaline Phosphatase 90 U/L (40-150); Anion Gap 13 mmol/L (10-20); BUN (Urea Nitrogen) 29 mg/dL (8.4-25.7); Bilirubin, Total 0.4 mg/dL (0.2-1.2); Calc. Creatinine Clearance 0 mL/min (70-130); Calcium 9.2 mg/dL (7.8-10.44); Carbon Dioxide 23 mmol/L (23-31); Chloride 104 mmol/L (98-107); Estimated GFR-MDRD 46; Globulin 2.8 g/dL (2.4-3.5); Glucose 259 mg/dL (80-115); Lipase 61 U/L (8-78); Potassium 4.1 mmol/L (3.5-5.1); Protein, Total 6.7 g/dL (5.8-8.1); Sodium 136 mmol/L (136-145)
== END 2018-03-06 13:22 | disposition home or self-care (01) ==
LOC: ERS 10:26
DX: R31.0 Gross hematuria (principal); E11.9 Type 2 diabetes mellitus without complications; E03.9 Hypothyroidism, unspecified; M19.90 Unspecified osteoarthritis, unspecified site; M06.9 Rheumatoid arthritis, unspecified; I10 Essential (primary) hypertension; Z79.4 Long term (current) use of insulin; Z79.82 Long term (current) use of aspirin; Z79.899 Other long term (current) drug therapy
CPT/HCPCS: 36415; 80053; 81003; 81015; 83690; 85025; 99283

== ENCOUNTER 2018-11-03 06:04 | Day surgery (SDC) | payer MEDICARE ==
[2018-11-02 11:58] VITALS: BMI 38.7
--- NOTE | 2018-11-03 01:27 | HP ---
HISTORY OF PRESENT ILLNESS: This is a 67-year-old male referred to me for evaluation of chronic diarrhea. The patient has had diarrhea over the last 6 or 7 months. Stools are watery and at times soft. He has had multiple stools throughout the day. No history of nocturnal diarrhea. No history of any hematochezia or rectal bleeding. The stool frequency varies from 5 stools to 15 stools per day. Stools are small in volume. The patient's stool studies were_ negative. He underwent colonoscopy because of chronic diarrhea. We will follow with EGD if the colonoscopy shows no pathology to rule any celiac disease. ALLERGIES: CODEINE. SOCIAL HISTORY: The patient does not smoke. Drinks alcohol socially. MEDICAL ILLNESSES: 1. Diabetes mellitus. 2. Hypertension. 3. Hypothyroidism. 4. Rheumatoid arthritis. 5. Peripheral neuropathy. 6. Chronic back pain. 7. Knee replacement. 8. Right shoulder surgery. 9. Left rotator cuff repair. PHYSICAL EXAMINATION: VITAL SIGNS: Pulse is 70 and blood pressure 130/70. HEENT: Conjunctivae clear. CARDIOVASCULAR: First and second heart sounds heard. LUNGS: Clear to auscultation. ABDOMEN: Soft. No organomegaly. No tenderness. No masses. ADMITTING DIAGNOSIS: Chronic diarrhea, etiology unclear. PLAN: Colonoscopy and possible EGD with small bowel biopsy. Job ID: [id number] [facility]
[2018-11-03] MEDS ORDERED: Fentanyl 100 MCG/2 ML VIAL ONE (06:32)
[2018-11-03] MEDS ORDERED: Lidocaine 2% 11 ML SYR ONE (06:59)
--- NOTE | 2018-11-03 12:03 | OP ---
DATE OF PROCEDURE: 11/03/2018 PROCEDURE PERFORMED: Colonoscopy with biopsy. PREOPERATIVE DIAGNOSIS: A 67-year-old male with chronic diarrhea, undergoing colonoscopy. POSTOPERATIVE DIAGNOSES: 1. Mild sigmoid diverticular disease. 2. Small hemorrhoids and also what appears to be a fibroepithelial polyp in the rectum. Otherwise normal exam. DESCRIPTION OF PROCEDURE: The patient was placed on his left lateral position and was given sedation by Anesthesia Department. A rectal exam was done before the scope was advanced into the rectum. No lesions felt on rectal exam. A Pentax video colonoscope was introduced into the rectum and advanced all the way into the cecum. The patient did have some pockets of thick yellowish fluid throughout the colon. Water was irrigated and washed out. The mucosa appears normal with normal vascular pattern. The ileocecal area, cecum, ascending colon, no pathology seen. The hepatic flexure, transverse colon, splenic flexure, descending colon, no pathology seen. The sigmoid colon shows mild diverticula. Retroflexion of scope in the rectum showed hemorrhoids and also what appears to be a fibroepithelial polyp. Random biopsies were obtained in the ascending colon, transverse colon, descending colon. DISCHARGE PLANNING: This is a 67-year-old male, came for colonoscopy because of history of chronic diarrhea. The colonoscopy showed no colitis. He was found to have mild sigmoid diverticula and also hemorrhoids. DISCHARGE RECOMMENDATION: 1. The patient was advised to call me if he develops abdominal pain, hematochezia. 2. High-fiber diet. 3. Trial of Metamucil once a day. Job ID: [id number]
[2018-11-03] MEDS ORDERED: PROPOFOL 200 MG/20 ML VIAL ONE (14:51)
== END 2018-11-03 09:20 | disposition home or self-care (01) ==
LOC: SDC 06:04
PROVIDERS: ATTEND Internal Medicine Gastroenterology
PROC: 0DBK8ZX Excision of Ascending Colon, Via Natural or Artificial Opening Endoscopic, Diagnostic (ICD-10-PCS; principal; 2018-11-03)
PROC: 0DBL8ZX Excision of Transverse Colon, Via Natural or Artificial Opening Endoscopic, Diagnostic (ICD-10-PCS; 2018-11-03)
PROC: 0DBM8ZX Excision of Descending Colon, Via Natural or Artificial Opening Endoscopic, Diagnostic (ICD-10-PCS; 2018-11-03)
DX: K52.831 Collagenous colitis (principal); K57.30 Diverticulosis of large intestine without perforation or abscess without bleeding; K64.9 Unspecified hemorrhoids; I10 Essential (primary) hypertension; E03.9 Hypothyroidism, unspecified; E11.42 Type 2 diabetes mellitus with diabetic polyneuropathy; M06.9 Rheumatoid arthritis, unspecified; M54.9 Dorsalgia, unspecified; G89.29 Other chronic pain; Z98.890 Other specified postprocedural states; Z79.82 Long term (current) use of aspirin; Z79.899 Other long term (current) drug therapy
CPT/HCPCS: 36416; 88305; J2704; J3010

== ENCOUNTER 2019-01-22 23:12 | Inpatient (IN) | payer MEDICARE ==
[2019-01-22 23:46] LABS: #Eosinphils 0.2 thou/uL (0.0-0.7); #Monocytes 0.8 thou/uL (0.11-0.59); #Neutrophils 6.4 thou/uL (1.40-6.50); %Basophils 0.4 % (0.0-1.0); %Eosinophils 2.5 % (0.0-10.0); %Lymphocytes 20.9 % (21.0-51.0); %Monocytes 8.1 % (0.0-10.0); %Neutrophils 68.2 % (42.0-75.0); Hemoglobin 14.3 g/dL (14.0-18.0); Mean Corpuscular HGB CONC 33.2 g/dL (32.0-36.0); Mean Corpuscular Hemoglobin 30.3 pg (27.0-31.0); Mean Platelet Volume 7.5 fL (7.4-10.4); Platelet Count 199 thou/uL (130-400); RBC Distribution Width 12.5 % (11.5-14.5); Red Blood Cell (RBC) Count 4.72 mill/uL (4.70-6.10); White Blood Cell (WBC) Count 9.4 thou/uL (4.8-10.8)
[2019-01-23 00:07] LABS: ALT (SGPT) 34 U/L (8-55); AST (SGOT) 23 U/L (5-34); Albumin 4.1 g/dL (3.4-4.8); Alkaline Phosphatase 83 U/L (40-150); Anion Gap 11 mmol/L (10-20); BUN (Urea Nitrogen) 33 mg/dL (8.4-25.7); Bilirubin, Total 0.3 mg/dL (0.2-1.2); CK (CPK) 383 U/L (30-200); Calc. Creatinine Clearance 0 mL/min (70-130); Calcium 9.2 mg/dL (7.8-10.44); Carbon Dioxide 26 mmol/L (23-31); Chloride 111 mmol/L (98-107); Estimated GFR-MDRD 45; Glucose 118 mg/dL (80-115); Potassium 4.2 mmol/L (3.5-5.1); Protein, Total 6.1 g/dL (5.8-8.1); Sodium 144 mmol/L (136-145)
--- NOTE | 2019-01-23 00:16 | RAD ---
EXAM: CHEST ONE VIEW HISTORY: Chest pain since yesterday. COMPARISON: 07/02/2017. FINDINGS: The cardiac silhouette and pulmonary vasculature is within normal limits. There is minimal linear sca rring at the right lung base. Linear densities at the left lung base have resolved. The lungs are otherwise clear. The osseous structures are intact. IMPRESSION: No acute cardiopulmonary process.
[2019-01-23 00:29] LABS: CKMB 3.1 ng/mL (0-6.6)
[2019-01-23] MEDS ORDERED: Enoxaparin Sodium 100 MG/ML SYRINGE ONE ×2 (01:13→01:22)
[2019-01-23] MEDS ORDERED: Enoxaparin Sodium 40 MG/0.4 ML SYRINGE ONE ×2 (01:13→01:20)
[2019-01-23] MEDS ORDERED: Enoxaparin Sodium 30 MG/0.3 ML SYRINGE ONE (01:22)
[2019-01-23 02:28] VITALS: BMI 26.5
[2019-01-23] MEDS ORDERED: Ondansetron ODT 4 MG TAB SL PRN (02:34)
[2019-01-23] MEDS ORDERED: Ondansetron PF 4 MG/2 ML Vial IVP PRN (02:34)
[2019-01-23 02:50] LABS: Troponin I 0.176 ng/mL (< 0.028)
[2019-01-23] MEDS: Sodium Chloride 0.9% 1,000 ML IV SCH ×2 (03:00→11:39)
[2019-01-23] MEDS ORDERED: HumaLOG 300 UNITS/3 ML VIAL SC PRN ×3 (07:56→10:07)
[2019-01-23] MEDS ORDERED: Dextrose 50% Abboject 50 ML SYRINGE SLOW IVP PRN (07:56)
[2019-01-23] MEDS ORDERED: Dextrose 5% in Water 1,000 ML IV PRN (07:56)
[2019-01-23 08:41] LABS: #Basophils 0.1 thou/uL (0.0-0.2); #Eosinphils 0.2 thou/uL (0.0-0.7); #Lymphocytes 2.1 thou/uL (1.20-3.40); #Monocytes 0.7 thou/uL (0.11-0.59); #Neutrophils 5.2 thou/uL (1.40-6.50); %Basophils 0.7 % (0.0-1.0); %Eosinophils 2.3 % (0.0-10.0); %Lymphocytes 25.9 % (21.0-51.0); %Monocytes 7.9 % (0.0-10.0); %Neutrophils 63.2 % (42.0-75.0); Hemoglobin 13.6 g/dL (14.0-18.0); Mean Corpuscular HGB CONC 33.6 g/dL (32.0-36.0); Mean Corpuscular Hemoglobin 30.7 pg (27.0-31.0); Mean Corpuscular Volume 91.6 fL (78.0-98.0); Mean Platelet Volume 7.6 fL (7.4-10.4); Platelet Count 182 thou/uL (130-400); RBC Distribution Width 12.5 % (11.5-14.5); Red Blood Cell (RBC) Count 4.43 mill/uL (4.70-6.10); White Blood Cell (WBC) Count 8.2 thou/uL (4.8-10.8)
[2019-01-23] MEDS ORDERED: Aspirin Chewable 81 MG TAB PO SCH (09:00)
[2019-01-23 09:02] LABS: Anion Gap 9 mmol/L (10-20); BUN (Urea Nitrogen) 26 mg/dL (8.4-25.7); CK (CPK) 262 U/L (30-200); Calc. Creatinine Clearance 60 mL/min (70-130); Calcium 8.9 mg/dL (7.8-10.44); Carbon Dioxide 27 mmol/L (23-31); Chloride 111 mmol/L (98-107); Estimated GFR-MDRD 52; Glucose 110 mg/dL (80-115); Potassium 4.3 mmol/L (3.5-5.1); Sodium 143 mmol/L (136-145)
[2019-01-23] MEDS ORDERED: Acetaminophen 325 MG TAB PO PRN (10:09)
[2019-01-23] MEDS ORDERED: Acetaminophen 650 MG Suppository PR PRN (10:09)
--- NOTE | 2019-01-23 10:30 | CON ---
DATE OF CONSULTATION: 01/23/2019 REASON FOR CONSULTATION: Chest pain. PRIMARY PRODUCTION RECORDER: Tera Silva MD HISTORY OF PRESENT ILLNESS: Mr. Duarte is a very pleasant 68-year-old white gentleman, who comes to the hospital for chest pain. He states that day, he started noticing midsternal pressure when he would exert himself and he would have to rest to make it go away. It took 5 or 10 minutes for it to go away. Anything he did, made him feel chest discomfort. Yesterday, he did some exertion and he felt much worse than he had in the past and the pain was not going away even with rest, so he decided to come in for evaluation. His troponins were in the indeterminate range, but a small rise and fall 0.14, 0.17, and 0.15, so he was admitted and Cardiology is being consulted for this. Mr. Duarte has a history of coronary artery disease. He had a heart catheterization back in 2013 after an abnormal stress test. He was found to have a normal EF at 50% to 55%, but he had a 20% lesion in the proximal LAD and luminal irregularities, 70% in the first diagonal and 50% on the second diagonal. Left circumflex had a 90% distal stenosis but too small to do anything about. He was treated medically. He has not had any problems with this. Last time he saw Dr. Silva was about a month ago. PAST MEDICAL HISTORY: 1. Type 2 diabetes. 2. Hypertension. 3. Hypothyroidism. 4. Rheumatoid arthritis. 5. Peripheral neuropathy. 6. Chronic back pain. 7. Knee replacement. 8. Right shoulder surgery. 9. Left rotator cuff repair. ALLERGIES: CODEINE. SOCIAL HISTORY: Social alcohol use. No drug or tobacco. PAST SURGICAL HISTORY: 1. Right knee replacement. 2. Hernia repair. 3. Rotator cuff repair. 4. Left knee replacement. 5. Appendectomy. 6. Tonsillectomy. OUTPATIENT MEDICATIONS: Include; 1. Aspirin 325 a day. 2. Insulin Levemir 30 units b.i.d. 3. Gabapentin. 4. Fluticasone. 5. Celecoxib. 6. Benicar/hydrochlorothiazide. 7. Loratadine. 8. Levothyroxine 75 mcg a day. 9. CoQ10. 10. Crestor 20 mg a day. 11. Saw [place]. 12. Tramadol p.r.n. ALLERGIES: HYDROCODONE AND CODEINE. REVIEW OF SYSTEMS: A 12-point review of systems was done and was all negative unless stated in the history of present illness. FAMILY HISTORY: Noncontributory. PHYSICAL EXAMINATION: VITAL SIGNS: Temperature 98.1, pulse 62, respiratory rate 20, O2 saturation 97% on room air, and blood pressure 115/60. GENERAL: Awake, alert, and oriented x3, in no distress. HEENT: Normocephalic, atraumatic. NECK: Supple. LUNGS: Clear. CARDIOVASCULAR: S1 and S2. No S3 or S4. No murmurs. ABDOMEN: Soft. Positive bowel sounds. EXTREMITIES: No edema. SKIN: Warm and dry. LABORATORY DATA: Laboratory work was reviewed. CBC with hemoglobin 13.6, hematocrit 40, platelet count of 182, and normal white count. D-dimer was undetectable. Chemistry with a BUN of 26, creatinine 1.35, GFR is 52, glucose of 110. CK was 383, CK-MB was normal. Troponin I was 0.14, 0.17, and 0.15 with BNP of 83. Albumin of 4.1. IMAGING DATA: EKG was reviewed. ASSESSMENT: 1. Unstable angina. 2. Coronary artery disease. 3. Recent diagnosis of rheumatoid arthritis. PLAN: 1. At this point, he gets very symptomatic with any movement whatsoever, symptoms concerning for angina. He has had an abnormal stress test in the past that showed severe branching disease, so I think a stress test would not give me the information I need. I think he needs to be best stratified with a heart catheterization. We have spoken about the risks and benefits of the procedure. Risks included, but not limited to, stroke, [place], , bleeding, need for blood transfusion, limb loss, or organ loss. He understands and verbalized understanding of this and agrees to proceed. 2. Dr. Silva, his primary congregational care pastor will probably perform this on Friday. 3. Further recommendations per results of coronary angiogram. Job ID: [id number]
[2019-01-23 10:46] LABS: Troponin I 0.109 ng/mL (< 0.028)
--- NOTE | 2019-01-23 10:58 | HP ---
CHIEF COMPLAINT: Chest pain. HISTORY OF PRESENT ILLNESS: Mr. Duatre is a pleasant 68-year-old man with a history of coronary artery disease, who presents with complaints of chest pain since Friday. He had 3 episodes all while exerting himself doing yard work or work around his home. The first one was on Friday while mowing the lawn. He suddenly felt a pressure in the center of his chest, lasting approximately 5 minutes and settling on its own after he sat down and rested. He denies any associated shortness of breath or diaphoresis. No nausea or vomiting. He states the pain was approximately 5/10 in severity. The each episode of chest pain was progressively worse, but all lasting approximately the same length of time and relieved by resting. The last one was yesterday evening, which he states was 7 to 8/10 in severity and again in the center of his chest described as a pressure. The chest pain has been nonradiating. He states he has been in his usual state of health. No recent cough or hemoptysis. No fevers, chills, or sweats. The patient has not noted any lower leg swelling or edema. He is seen regularly by Dr. Silva, who is his desktop administrator. He reports undergoing a stress test two years ago and catheterization two years ago and was told he had minimal blockage. Per the records here, it appears his last catheterization was in December 2013. At that time, he was noted to have 20% proximal stenosis of the LAD and 50% lesion in the ostium of the second diagonal branch with 70% lesion in the first diagonal branch. The left circumflex artery was noted to have a distal 90% stenosis. He had a normal ejection fraction at that time. He has not undergone any cardiac workup since then. A stress test done at that time showed no evidence of myocardial ischemia. Mild fixed defect involving the inferior wall, felt to be likely related to diaphragmatic attenuation and LVEF of 64%. REVIEW OF SYSTEMS: The patient again denies having any fevers, chills, or sweats. No cough or hemoptysis. Denies any associated dizziness, nausea, or vomiting. No diaphoresis. Denies having any abdominal pain or cramping. He has had a good appetite without any changes in his weight. No bowel changes or urinary symptoms. All other review of systems are negative. He does have longstanding neuropathy for which he takes gabapentin. ALLERGIES: 1. HYDROCODONE. 2. CODEINE. CURRENT MEDICATIONS: 1. Aspirin. 2. Insulin. 3. Gabapentin. 4. Fluticasone. 5. Celecoxib. 6. Benicar HCT. 7. Loratadine. 8. Levothyroxine. 9. CoQ10. 10. Rosuvastatin. 11. Saw [place]. 12. Ultram. PAST MEDICAL HISTORY: 1. Coronary artery disease. 2. Diabetes. 3. Hypothyroidism. 4. Hypertension. 5. Osteoarthritis. 6. Diabetic neuropathy. 7. Rheumatoid arthritis. 8. History of kidney stones. PAST SURGICAL HISTORY: 1. Hernia repair. 2. Rotator cuff surgery. 3. Right knee replacement. 4. Left knee replacement. 5. Lower back surgery. 6. Appendectomy. 7. Tonsillectomy. 8. Left hand carpal tunnel repair. SOCIAL HISTORY: The patient denies any alcohol use, tobacco use, or illicit drug use. PHYSICAL EXAMINATION: GENERAL: The patient appears well developed, well nourished, and is in no apparent distress. VITAL SIGNS: Temperature 98.1, pulse 62, respirations 20, O2 saturation 97% on room air, and blood pressure 115/60. HEENT: Normocephalic and atraumatic. Pupils are equal, round, and reactive to light. Sclerae without icterus. Oropharynx is clear. NECK: Supple. No rigidity. CARDIAC: Regular rate and rhythm. LUNGS: Clear to auscultation bilaterally. No reproducible chest wall tenderness on exam. ABDOMEN: Obese, soft, nontender, nondistended. Normoactive bowel sounds present. No guarding or rigidity. No renal angle tenderness. EXTREMITIES: Without lower leg edema or swelling. NEUROLOGIC: Alert and oriented x3. No neuro deficits. SKIN: Without rash or jaundice. LABORATORY DATA: White blood count 8.2, hemoglobin 13.6, hematocrit 40.6, platelets 182. D-dimer less than 0.27. Sodium 143, potassium 4.3, chloride 111, carbon dioxide 27, anion gap 9, BUN 26 improved from 33 yesterday, creatinine 1.35 improved from 1.53 yesterday. GFR 52 at baseline. Glucose 110, calcium 8.9. LFTs done yesterday unremarkable. CK 262. Troponin I 0.148, 0.176, 0.150. BNP 83.5. IMAGING DATA: Chest x-ray, no acute cardiopulmonary process. Minimal linear scarring at the right lung base. Linear densities at the left lung base have resolved compared to previous study in June 2017. IMPRESSION AND PLAN: Mr. Duarte is a very pleasant 68-year-old man, being admitted for management of the following. 1. Chest pain rule out acute coronary syndrome. The patient has indeterminate troponin. The second one is slightly elevated and third slightly improved. Chest pain brought on with exertion on three episodes since Friday. Each time the pain was more severe than the last. He is status post cath in 2013 at which time, he was noted to have moderate coronary artery disease. He is awaiting Cardiology review. He would likely require repeat catheterization. He will remain n.p.o. until evaluated. 2. Hypertension. Monitor blood pressure and reconcile home medications. 3. Diabetes mellitus. Initiate insulin sliding scale. Resume home medications and monitor glucose. 4. Gastrointestinal prophylaxis. 5. Deep venous thrombosis prophylaxis with mechanical SCDs. The patient is ambulatory. 6. Full code status. His surrogate decision maker is his brother, Rose Quinonez. 7. The patient's case was discussed with Dr. Aguilar, who agrees with plan of care as described above. Job ID: [id number]
[2019-01-23] MEDS ORDERED: traMADol HCl 50 MG TAB PO PRN (14:20)
[2019-01-23] MEDS: Insulin Glargine 30 UNITS in Pre-Filled Syringe 1 EACH SC SCH (20:42)
[2019-01-23] MEDS: Rosuvastatin 20 MG TAB PO SCH (20:43)
[2019-01-23] MEDS: Gabapentin 300 MG CAP PO SCH (20:44)
[2019-01-23] MEDS: Famotidine 20 MG TAB PO SCH (20:44)
[2019-01-23] MEDS ORDERED: Non-Formulary Item 1 EACH (Insulin Detemir [Levemir Flextouch] 30 UNIT) SC SCH (21:00)
[2019-01-23] MEDS ORDERED: Famotidine/PF 20 mg/2ml Vial SLOW IVP SCH (21:00)
[2019-01-24 05:06] LABS: #Eosinphils 0.2 thou/uL (0.0-0.7); #Lymphocytes 1.9 thou/uL (1.20-3.40); #Monocytes 0.7 thou/uL (0.11-0.59); #Neutrophils 4.3 thou/uL (1.40-6.50); %Basophils 0.5 % (0.0-1.0); %Eosinophils 3.2 % (0.0-10.0); %Lymphocytes 26.6 % (21.0-51.0); %Monocytes 9.2 % (0.0-10.0); %Neutrophils 60.5 % (42.0-75.0); Mean Corpuscular HGB CONC 33.5 g/dL (32.0-36.0); Mean Corpuscular Hemoglobin 30.8 pg (27.0-31.0); Mean Corpuscular Volume 91.8 fL (78.0-98.0); Mean Platelet Volume 7.6 fL (7.4-10.4); Platelet Count 175 thou/uL (130-400); RBC Distribution Width 12.5 % (11.5-14.5); Red Blood Cell (RBC) Count 4.22 mill/uL (4.70-6.10)
[2019-01-24 05:31] LABS: Anion Gap 11 mmol/L (10-20); BUN (Urea Nitrogen) 20 mg/dL (8.4-25.7); Calc. Creatinine Clearance 67 mL/min (70-130); Calcium 8.7 mg/dL (7.8-10.44); Carbon Dioxide 24 mmol/L (23-31); Cardiac Risk 4.4 (Less than 4.5); Chloride 108 mmol/L (98-107); Cholesterol 111 mg/dl (< 200 Desired); Estimated GFR-MDRD 59; Glucose 134 mg/dL (80-115); HDL Cholesterol 25 mg/dL (>60 Neg Risk); LDL Cholesterol, Calculated 64 mg/dL; Potassium 3.7 mmol/L (3.5-5.1); Sodium 139 mmol/L (136-145); Triglycerides 112 mg/dL (Less than 150)
[2019-01-24] MEDS: Levothyroxine Sodium 75 MCG TAB PO SCH (05:56)
[2019-01-24] MEDS: Hydrochlorothiazide 25 MG TAB PO SCH (08:48)
[2019-01-24] MEDS: Insulin Glargine 30 UNITS in Pre-Filled Syringe 1 EACH SC SCH ×2 (08:48→21:39)
[2019-01-24] MEDS: Famotidine 20 MG TAB PO SCH ×2 (08:48→21:37)
[2019-01-24] MEDS: Loratadine 10 MG TAB PO SCH (08:49)
[2019-01-24] MEDS: Ubidecarenone 50 MG CAP PO SCH (08:49)
[2019-01-24] MEDS: CeleCOXIB 100 MG CAP PO SCH (08:49)
[2019-01-24] MEDS ORDERED: Non-Formulary Item 1 EACH (Olmesartan/Hydrochlorothiazide [Benicar Hct] 1 TABLET) PO SCH (09:00)
--- NOTE | 2019-01-24 15:59 | PDOC.PN ---
- Subjective Encounter Start Date: 01/24/19 Encounter Start Time: 13:47 Subjective: Patient states he has been feeling well and with no further episodes of -: chest pain. Has been moving about in his room. No shortness of breath. -: No issues overnight. Has been tolerating his food without any n/v. Moving his bowels as normal. No bowel changes or urinary symptoms. Denies any fevers, chills or sweats. No cough or hemoptysis. Overall feeling well in himself and without complaints. - Objective Resuscitation Status - Order Detail: 01/23/19 10:09 Resuscitation Status Routine Co-Sign Provider: Resuscitation Status: FULL: Full Resuscitation Vital Signs & Weight: Vital Signs (12 hours) Temp Pulse Resp BP Pulse Ox 01/24/19 12:08 99 F 78 18 118/65 93 L 01/24/19 08:00 97.8 F 61 16 118/68 96 Weight Weight 292 lb 9.6 oz I&O: 01/23/19 01/24/19 01/25/19 06:59 06:59 06:59 Intake Total 500 2550 Output Total 700 1100 Balance -200 1450 Result Diagrams: 01/24/19 04:31 01/24/19 04:31 Additional Labs: Accuchecks 01/24/19 01/23/19 01/23/19 10:38 20:17 16:41 POC Glucose 119 H 162 H 121 H Phys Exam - Physical Examination Constitutional: NAD HEENT: PERRLA, moist MMs, sclera anicteric, oral pharynx no lesions Neck: supple, full ROM Respiratory: clear to auscultation bilateral Cardiovascular: RRR no chest wall tenderness Gastrointestinal: soft, non-tender, no distention, positive bowel sounds Obese Musculoskeletal: no edema, pulses present Neurological: non-focal, normal sensation, moves all 4 limbs Psychiatric: normal affect, A&O x 3 Skin: no rash, normal turgor Dx/Plan (1) Chest pain Code(s): R07.9 - CHEST PAIN, UNSPECIFIED Status: Resolved Qualifiers: Ischemic chest pain type: unstable angina pectoris Plan: Seen by Dr. Lawrence, for cath tomorrow morning. NPO at midnight. Remains asymptomatic since admission. (2) Hypertension Code(s): I10 - ESSENTIAL (PRIMARY) HYPERTENSION Status: Chronic Plan: Continue home meds. Monitor BP. (3) Sleep apnea Code(s): G47.30 - SLEEP APNEA, UNSPECIFIED Status: Suspected - Plan cont current plan of care For cath on Friday. -: NPO at midnight. -: Asymptomatic. * .
--- NOTE | 2019-01-24 16:36 | PDOC.CTH ---
Cardiology Progress Note - Subjective No new issues. - Objective Vital Signs Temp Pulse Resp BP Pulse Ox 01/24/19 15:33 98.9 F 66 16 139/72 95 01/24/19 12:08 99 F 78 18 118/65 93 L 01/24/19 08:00 97.8 F 61 16 118/68 96 Weight 292 lb 9.6 oz 01/23/19 01/24/19 01/25/19 06:59 06:59 06:59 Intake Total 500 2550 Output Total 700 1100 Balance -200 1450 - Physical Examination General/Neuro: alert & oriented x3, NAD Neck: no JVD present Lungs: unlabored respirations Heart: RRR Abdomen: NT/ND Extremities: other: (no edema) - Telemetry Telemetry Rhythm: NSR - Labs Result Diagrams: 01/24/19 04:31 01/24/19 04:31 Troponin/CKMB CK-MB (CK-2) 3.1 ng/mL (0-6.6) 01/22/19 23:34 Troponin I 0.109 ng/mL (< 0.028) H 01/23/19 10:08 - Assessment/Plan 1. Unstable angina 2. CAD, mild to moderate in the past. 3. Rheumatoid arthritis 4. Dilated root on echo at 4.0 cm. PLAN: - [facility] tomorrow by Dr. Silva.
[2019-01-24] MEDS ORDERED: Communication Order-Pharmacy FS SCH (16:45)
[2019-01-24] MEDS: Rosuvastatin 20 MG TAB PO SCH (21:37)
[2019-01-24] MEDS: Gabapentin 300 MG CAP PO SCH (21:37)
[2019-01-24] MEDS: traMADol HCl 50 MG TAB PO PRN (21:38)
[2019-01-25] MEDS: Sodium Chloride 0.9% 1,000 ML IV SCH ×2 (00:59→12:55)
[2019-01-25 05:14] LABS: #Eosinphils 0.3 thou/uL (0.0-0.7); #Lymphocytes 2.6 thou/uL (1.20-3.40); #Monocytes 0.8 thou/uL (0.11-0.59); %Basophils 0.5 % (0.0-1.0); %Eosinophils 2.9 % (0.0-10.0); %Lymphocytes 26.6 % (21.0-51.0); %Monocytes 8.4 % (0.0-10.0); %Neutrophils 61.6 % (42.0-75.0); Hemoglobin 14.4 g/dL (14.0-18.0); Mean Corpuscular HGB CONC 33.9 g/dL (32.0-36.0); Mean Corpuscular Hemoglobin 30.9 pg (27.0-31.0); Mean Corpuscular Volume 91.2 fL (78.0-98.0); Mean Platelet Volume 7.4 fL (7.4-10.4); Platelet Count 195 thou/uL (130-400); RBC Distribution Width 12.6 % (11.5-14.5); Red Blood Cell (RBC) Count 4.67 mill/uL (4.70-6.10); White Blood Cell (WBC) Count 9.7 thou/uL (4.8-10.8)
[2019-01-25 05:32] LABS: Anion Gap 11 mmol/L (10-20); BUN (Urea Nitrogen) 20 mg/dL (8.4-25.7); Calc. Creatinine Clearance 69 mL/min (70-130); Calcium 9.2 mg/dL (7.8-10.44); Carbon Dioxide 25 mmol/L (23-31); Chloride 110 mmol/L (98-107); Estimated GFR-MDRD 48; Glucose 108 mg/dL (80-115); Potassium 4.2 mmol/L (3.5-5.1); Sodium 142 mmol/L (136-145)
[2019-01-25] MEDS: Ubidecarenone 50 MG CAP PO SCH (06:11)
[2019-01-25] MEDS: Levothyroxine Sodium 75 MCG TAB PO SCH (06:11)
[2019-01-25] MEDS: Loratadine 10 MG TAB PO SCH (06:12)
[2019-01-25] MEDS: CeleCOXIB 100 MG CAP PO SCH (06:12)
[2019-01-25] MEDS: Famotidine 20 MG TAB PO SCH ×2 (06:12→20:29)
[2019-01-25] MEDS ORDERED: Iopamidol 370 76% 100 ML VIAL ONE (11:05)
[2019-01-25] MEDS ORDERED: Midazolam HCl 2 mg/2 ml Vial ONE (12:00)
[2019-01-25] MEDS ORDERED: Sodium Chloride 0.9% 200 ML IV PRN (12:28)
[2019-01-25] MEDS ORDERED: Nitroglycerin 0.4 MG TAB (25 Tab Bottle) SL PRN ×2 (12:28→13:51)
[2019-01-25] MEDS: Hydrochlorothiazide 25 MG TAB PO SCH (13:46)
[2019-01-25] MEDS: Insulin Glargine 30 UNITS in Pre-Filled Syringe 1 EACH SC SCH ×2 (13:47→23:04)
[2019-01-25] MEDS ORDERED: traMADol HCl 50 MG TAB PO PRN (13:51)
[2019-01-25] MEDS ORDERED: Communication Order-Pharmacy FS ONE (17:38)
[2019-01-25] MEDS ORDERED: Zolpidem Tartrate 5 MG TAB PO PRN (17:38)
[2019-01-25 18:43] LABS: INR-International Normal Ratio 1.1; PTT 36.4 SEC (22.9-36.1); Prothrombin Time 14.1 SEC (12.0-14.7)
[2019-01-25 19:05] LABS: Anion Gap 11 mmol/L (10-20); BUN (Urea Nitrogen) 17 mg/dL (8.4-25.7); Calc. Creatinine Clearance 73 mL/min (70-130); Calcium 9.3 mg/dL (7.8-10.44); Carbon Dioxide 27 mmol/L (23-31); Chloride 108 mmol/L (98-107); Estimated GFR-MDRD 51; Glucose 95 mg/dL (80-115); Sodium 142 mmol/L (136-145)
--- NOTE | 2019-01-25 19:17 | PRG ---
DATE OF SERVICE: 01/25/2019 SUBJECTIVE: Mr. Duarte is a pleasant 68-year-old male with past medical history significant for moderate coronary artery disease diagnosed in the past, hypertension, and type 2 diabetes mellitus, who presented to the hospital with complaints of chest pain. The patient has been admitted with unstable angina and underwent left heart catheterization with Dr. Silva earlier today, which revealed severe coronary artery disease, requiring bypass surgery. The patient was seen post catheterization, resting comfortably in bed. He has no complaints at this time. He has no chest pain or shortness of breath. No nausea or vomiting. The patient has no pain from his femoral access site. OBJECTIVE: VITAL SIGNS: Blood pressure 125/68, O2 saturation is 94% on room air, pulse is 62, respirations 16, and temperature 97.9. GENERAL: The patient is a well-appearing male, resting comfortably in prone position. No acute distress. HEENT: Head, atraumatic and normocephalic. Mucous membranes are moist. NECK: Supple. No lymphadenopathy. No JVD. CV: S1 and S2. Regular rate and rhythm. No appreciable murmurs, rubs, or gallops. LUNGS: Regular respiratory rate and pattern. Clear to auscultation bilaterally. ABDOMEN: Positive bowel sounds. Soft, nontender. EXTREMITIES: No edema. SKIN: Warm and dry. No rashes. NEUROLOGIC: Cranial nerves 2 through 12 intact. The patient is nonfocal. LABORATORY DATA: On January 25, 2019, reveal white blood cell count 9.7, hemoglobin 14.4, hematocrit 42.6, and platelets are 195. Sodium 142, potassium 4.2, carbon dioxide 25, anion gap 11, BUN 20, creatinine 1.45, glucose 108, and calcium 9.2. ASSESSMENT: 1. Severe triple-vessel coronary artery disease diagnosed per left heart catheterization today, with an ostial 90% ramus lesion, 90% proximal left anterior descending artery lesion as well as 90% stenosis of the first and second diagonal. He also has a 90% distal circumflex lesion. Preserved EF. 2. Hypertension. 3. Type 2 diabetes mellitus. 4. Hyperlipidemia. PLAN: The patient has been referred to CV Surgery/Dr. Kingston for evaluation for coronary artery bypass grafting this hospitalization. At this time, we will continue supportive care and treatment. Continue sliding scale insulin. We will get a BMP in the a.m. Further recommendations based on hospital course. Job ID: [id number] KAMILAH
[2019-01-25] MEDS: traMADol HCl 50 MG TAB PO PRN (20:27)
[2019-01-25] MEDS: Gabapentin 300 MG CAP PO SCH (20:28)
[2019-01-25] MEDS: Rosuvastatin 20 MG TAB PO SCH (20:28)
--- NOTE | 2019-01-25 23:53 | CON ---
DATE OF CONSULTATION: 01/25/2019 REASON FOR CONSULTATION: Evaluate patient for coronary artery bypass grafting. HISTORY OF PRESENT ILLNESS: Mr. 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 He has noticed that over the past couple of days, he has had chest tightness leading to pain when he exerted himself working his business. He eventually had pain that lasted for approximately 10 minutes before it went away and this scared him enough that he came to the ER. He was found to have troponin of 0.17. He had previously had a heart catheterization, which showed normal ejection fraction and minimal coronary artery disease in 2013. Due to his history, he was brought to the skilled laborer today and found to have severe three-vessel disease. The left dominant system with bypassable targets including LAD, diagonal, ramus, terminal ileum. I have been asked to see him and discuss coronary artery bypass grafting. PAST MEDICAL HISTORY: 1. Type 2 diabetes mellitus. 2. Hypertension. 3. Coronary artery disease. 4. Dyslipidemia. 5. Hypothyroidism. 6. Rheumatoid arthritis. 7. Peripheral neuropathy. 8. Chronic back pain. PAST SURGICAL HISTORY: 1. Bilateral knee replacements. 2. Left rotator cuff repair. 3. Right shoulder surgery. ALLERGIES: CODEINE. OUTPATIENT MEDICATIONS: 1. Aspirin 325 mg daily. 2. Levemir 30 units b.i.d. 3. Gabapentin. 4. Levothyroxine 75 mcg daily. 5. CoQ10. 6. Crestor 20 mg daily. 7. Loratadine. 8. Benicar/HCTZ. 9. Celecoxib. FAMILY HISTORY: Negative except as above. REVIEW OF SYSTEMS: Ten-point review of systems is performed and is negative except as above. PHYSICAL EXAMINATION: GENERAL: This is a well-developed, well-nourished man, resting comfortably in bed. VITAL SIGNS: His height is 5 feet 10 inches. Weight is 227 pounds. BSA is 2.26. Temperature is 97.9, pulse is 62 and regular, and blood pressure 125/68. HEENT: Sclerae nonicteric. Pupils are equal and round bilaterally. NECK: Supple. He has no carotid bruits. CHEST: Clear bilaterally. HEART: Rhythm is regular. There are no murmurs or rubs. ABDOMEN: Soft and nontender without mass. EXTREMITIES: No cyanosis, clubbing, or edema. VASCULAR: Palpable carotid, radial, femoral, and dorsalis pedis pulses bilaterally. VENOUS: There is no venous varicosities or venous stasis changes. PSYCHIATRIC: The patient is awake, alert, and oriented to person, place, and time. RADIOLOGY: I have reviewed his chest x-ray which shows no dominant lung mass and well inflated lungs bilaterally. Cardiac catheterization is as above. LABORATORY DATA: Of note, hemoglobin is 14.4, platelet count is 195,000. Creatinine is 1.45, potassium is 4.2. Accu-Cheks have been between 115 and 133. ASSESSMENT AND PLAN: This is a pleasant 68-year-old gentleman with severe three-vessel disease. I discussed coronary artery bypass grafting with him, utilizing left internal mammary artery to LAD and saphenous vein graft to diagonal, ramus, and OM. He is agreeable to proceed tomorrow. Risks, benefits, and options have been outlined and signed. Job ID: [id number]
[2019-01-26] MEDS: Sodium Chloride 0.9% 1,000 ML IV SCH (00:13)
[2019-01-26] MEDS: Levothyroxine Sodium 75 MCG TAB PO SCH (02:46)
[2019-01-26] MEDS ORDERED: Dexamethasone 4 mg/ml Vial ONE (06:28)
[2019-01-26] MEDS ORDERED: Bupivacaine HCl 0.5%/Epinephrine 1:200,000/PF 30 ml Vial ONE (06:28)
[2019-01-26] MEDS ORDERED: Albumin 5% 0 ML ONE (07:06)
[2019-01-26] MEDS ORDERED: Heparin 10,000 UNITS/1 ML VIAL 30,000 UNITS in Sodium Chloride 0.9% 1,000 ML FS SCH (07:30)
--- NOTE | 2019-01-26 07:44 | PDOC.PN ---
- Subjective Encounter Start Date: 01/26/19 Encounter Start Time: 14:10 Subjective: Patient just back from CABG, still intubated and sedated. - Objective Resuscitation Status - Order Detail: 01/23/19 10:09 Resuscitation Status Routine Co-Sign Provider: Resuscitation Status: FULL: Full Resuscitation MAR Reviewed: Yes Vital Signs & Weight: Vital Signs (12 hours) Temp Pulse Resp BP Pulse Ox 01/26/19 03:39 98 F 63 20 123/62 95 01/25/19 23:35 97.8 F 68 20 138/68 94 L Weight Weight 227 lb 14.4 oz I&O: 01/25/19 01/26/19 01/27/19 06:59 06:59 06:59 Intake Total 1797 Output Total 950 200 Balance 847 -200 Result Diagrams: 01/25/19 04:56 01/25/19 18:26 Additional Labs: Accuchecks 01/26/19 01/25/19 01/25/19 05:05 20:14 17:10 POC Glucose 120 H 141 H 128 H 01/25/19 11:01 POC Glucose 124 H Phys Exam - Physical Examination HEENT: moist MMs Respiratory: no wheezing, no rales, no rhonchi sternotomy incision with dressing c/d/i Cardiovascular: RRR, no significant murmur Gastrointestinal: soft, positive bowel sounds Neurological: non-focal Deviation from normal: sedated on vent Dx/Plan (1) Unstable angina Status: Acute Comment: pain resolved (2) CAD (coronary artery disease) Code(s): I25.10 - ATHSCL HEART DISEASE OF [place] CORONARY ARTERY W/O ANG PCTRS Status: Acute Qualifiers: Coronary Disease-Associated Artery/Lesion type: [place] artery Comment: severe 3-vessel disease, s/p CABG 01/26/2019 (3) Dilated aortic root Code(s): I77.810 - THORACIC AORTIC ECTASIA Status: Acute Comment: 4 cm (4) Diabetes mellitus type 2 in obese Code(s): E11.69 - TYPE 2 DIABETES MELLITUS WITH OTHER SPECIFIED COMPLICATION; E66.9 - OBESITY, UNSPECIFIED Status: Chronic (5) Hypertension Code(s): I10 - ESSENTIAL (PRIMARY) HYPERTENSION Status: Chronic (6) Dyslipidemia Code(s): E78.5 - HYPERLIPIDEMIA, UNSPECIFIED Status: Chronic (7) Hypothyroidism Code(s): E03.9 - HYPOTHYROIDISM, UNSPECIFIED Status: Chronic (8) Rheumatoid arthritis Code(s): M06.9 - RHEUMATOID ARTHRITIS, UNSPECIFIED Status: Chronic (9) Peripheral neuropathy Code(s): G62.9 - POLYNEUROPATHY, UNSPECIFIED Status: Chronic (10) Back pain Code(s): M54.9 - DORSALGIA, UNSPECIFIED Status: Chronic Qualifiers: Back pain location: thoracic back pain Chronicity: chronic - Plan cont current plan of care, PT/OT, DVT proph w/SCDs routine post CABG care * . - Discharge Day Encounter end time: 14:30
[2019-01-26] MEDS ORDERED: Midazolam HCl 5 mg/5 ml Vial ONE (08:13)
[2019-01-26] MEDS ORDERED: Fentanyl 250 MCG/5 ML VIAL ONE (08:13)
[2019-01-26] MEDS ORDERED: Norepinephrine 8 MG/0.9% NS 0 ML ONE (08:13)
[2019-01-26] MEDS ORDERED: Vecuronium 10 MG VIAL ONE ×2 (08:13→13:03)
[2019-01-26] MEDS ORDERED: Phenylephrine HCL 10 MG/ML VIAL ONE (08:44)
[2019-01-26] MEDS ORDERED: Midazolam HCl 2 mg/2 ml Vial ONE (09:39)
[2019-01-26] MEDS ORDERED: Insulin Regular 300 UNITS/3 ML VIAL ONE (09:49)
[2019-01-26] MEDS ORDERED: CEFAZOLIN 2 GM in Premix Bag 1 BAG IVPB SCH (10:00)
[2019-01-26] MEDS ORDERED: CEFAZOLIN 1 GM VIAL SLOW IVP SCH (10:00)
[2019-01-26] MEDS ORDERED: Magnesium 5 GM/10 ML VIAL ONE (13:03)
[2019-01-26] MEDS ORDERED: Nitroglycerin 50 MG/250 ML BOT ONE (13:03)
[2019-01-26] MEDS ORDERED: Calcium Chloride 1 GM/10 ML Abboject SYRINGE ONE (13:03)
[2019-01-26] MEDS ORDERED: Heparin 30,000 units/30 ml VIAL ONE (13:03)
[2019-01-26] MEDS ORDERED: Potassium Chloride 60 MEQ/30 ML VIAL ONE (13:03)
[2019-01-26] MEDS ORDERED: Lidocaine 2% PF 100 mg/5 ml Syringe ONE (13:03)
[2019-01-26] MEDS ORDERED: Esmolol 100 MG/10 ML VIAL ONE (13:03)
[2019-01-26] MEDS ORDERED: Heparin 5,000 UNITS/ML VIAL ONE (13:03)
[2019-01-26] MEDS ORDERED: Rocuronium Bromide 10 MG/ML (10ML VIAL) ONE (13:03)
[2019-01-26] MEDS ORDERED: PROPOFOL 200 MG/20 ML VIAL ONE (13:03)
[2019-01-26] MEDS ORDERED: Mannitol 12.5 GM/50 ML ONE (13:03)
[2019-01-26] MEDS ORDERED: Protamine Sulfate 250 MG/25 ML VIAL ONE (13:03)
[2019-01-26] MEDS ORDERED: Papaverine 60 MG/2 ML VIAL ONE (13:03)
[2019-01-26] MEDS ORDERED: Aminocaproic Acid 5 GM/20 ML VIAL ONE (13:03)
[2019-01-26] MEDS ORDERED: Cardioplegic Soln 1,000 ML BAG ONE (13:03)
[2019-01-26] MEDS ORDERED: Thrombin 5000 UNITS/5 ML VIAL ONE (13:03)
[2019-01-26] MEDS ORDERED: Hydrocortisone Sod Succ/PF 100 mg/2 ml Vial ONE (13:03)
[2019-01-26] MEDS ORDERED: PHENYLEPHRINE-NS 100 MCG/ML 10 ML SYRINGE ONE (13:03)
[2019-01-26] MEDS ORDERED: Sodium Bicarb 50 MEQ/50 ML VIAL ONE (13:03)
[2019-01-26] MEDS ORDERED: Albumin 5% 500 ML ONE (13:06)
[2019-01-26] MEDS ORDERED: traMADol HCl 50 MG TAB PO PRN (13:54)
[2019-01-26 14:21] LABS: Base Excess (BEa) -3.4 mEq/L (-2.0 to +3.0); CO2 Tension 46.5 mmHg (35.0-45.0); Calcium, Ionized 1.15 mmol/L (1.12-1.30); Carboxyhemoglobin (COHb) 1.6 gm% (0.0-3.0); Hemoglobin (Hb) 14.6 g/dL (14.0-18.0); O2 Tension (PaO2) 72.8 mmHg (> 70.0); Potassium - ABG Lab 4.18 mmol/L (3.70-5.30); pH, Arterial 7.31 (7.35-7.45)
[2019-01-26 14:24] LABS: ALV-art Gradient 296.875 (0-20); Puncture Site ART LINE
[2019-01-26 14:33] LABS: Analyzer IN Cardio OR; Base Excess (BEa) -1.3 mEq/L (-2.0 to +3.0); CO2 Tension 37.7 mmHg (35.0-45.0); Calcium, Ionized 1.13 mmol/L (1.12-1.30); Carboxyhemoglobin (COHb) 0.5 gm% (0.0-3.0); Hemoglobin (Hb) 13.9 g/dL (14.0-18.0); O2 Tension (PaO2) 286.9 mmHg (> 70.0); Potassium - ABG Lab 3.83 mmol/L (3.70-5.30)
[2019-01-26 14:34] LABS: Actual Bicarbonate (HCO3a) 22.3 mEq/L (22-28); Analyzer IN Cardio OR; Base Excess (BEa) -2.5 mEq/L (-2.0 to +3.0); CO2 Tension 38.6 mmHg (35.0-45.0); Calcium, Ionized 1.08 mmol/L (1.12-1.30); Carboxyhemoglobin (COHb) 0.3 gm% (0.0-3.0); Hemoglobin (Hb) 13.5 g/dL (14.0-18.0); O2 Tension (PaO2) 358.7 mmHg (> 70.0); Potassium - ABG Lab 4.09 mmol/L (3.70-5.30); pH, Arterial 7.38 (7.35-7.45)
[2019-01-26 14:34] LABS: Actual Bicarbonate (HCO3a) 22.7 mEq/L (22-28); Analyzer IN Cardio OR; Base Excess (BEa) -0.9 mEq/L (-2.0 to +3.0); CO2 Tension 33.9 mmHg (35.0-45.0); Calcium, Ionized 0.97 mmol/L (1.12-1.30); Carboxyhemoglobin (COHb) 0.3 gm% (0.0-3.0); Hemoglobin (Hb) 10.7 g/dL (14.0-18.0); Potassium - ABG Lab 5.17 mmol/L (3.70-5.30); pH, Arterial 7.44 (7.35-7.45)
[2019-01-26 14:40] LABS: Actual Bicarbonate (HCO3v) 24 mEq/L (22-28); Analyzer IN Cardio OR; Base Excess -1.7 mEq/L (-2.0 to +3.0); Calcium, Ionized 1.03 mmol/L (1.16-1.32); Chloride (ABG LAB) 107 mmol/L (98-106); Hemoglobin (Hb) 10.9 g/dL (12.6-17.4); Potassium - ABG Lab 4.72 mmol/L (3.70-5.30); Sodium 135.6 mmol/L (133-146); pH (venous) 7.37 (7.32-7.43)
[2019-01-26] MEDS ORDERED: Guaifenesin DM 100-10/5 ML UDCUP PO PRN (14:42)
[2019-01-26] MEDS ORDERED: HYDROcodone/Acetaminophen 5/325 mg Tablet PO PRN ×2 (14:42)
[2019-01-26] MEDS ORDERED: Ondansetron PF 4 MG/2 ML Vial IVP PRN (14:42)
[2019-01-26] MEDS ORDERED: Nitroglycerin 50 MG/250 ML BOT 250 ML IVPB PRN (14:42)
[2019-01-26] MEDS ORDERED: D5 1/2 NS w/20 mEq KCL 1,000 ML IV SCH (14:42)
[2019-01-26] MEDS ORDERED: Acetaminophen 325 MG TAB PO PRN (14:42)
[2019-01-26] MEDS ORDERED: Post-Op Insulin Drip Protocol IVPB ONE (14:42)
[2019-01-26] MEDS ORDERED: Hetastarch 6% 500 ML 500 ML IVPB PRN (14:42)
[2019-01-26] MEDS ORDERED: Mag-Al 1200 mg/1200 mg/30 ML UDCUP PO PRN (14:42)
[2019-01-26] MEDS ORDERED: Potassium Chloride 20 MEQ/100 ML PREMIX BAG IVPB PRN (14:42)
[2019-01-26] MEDS ORDERED: Norepinephrine 8 MG/0.9% NS 250 ML IVPB PRN (14:42)
[2019-01-26] MEDS ORDERED: Bisacodyl 5 MG TAB PO PRN (14:42)
[2019-01-26] MEDS ORDERED: hydrALAZINE 20 MG/ML VIAL SLOW IVP PRN (14:42)
[2019-01-26] MEDS ORDERED: Bisacodyl 10 MG SUPP PR PRN (14:42)
[2019-01-26] MEDS ORDERED: Fentanyl 100 MCG/2 ML VIAL SLOW IVP PRN (14:42)
[2019-01-26] MEDS ORDERED: Promethazine HCl 25 MG/ML VIAL IM PRN (14:42)
[2019-01-26 14:48] LABS: Puncture Site ALINE
[2019-01-26 14:49] LABS: Puncture Site ALINE
[2019-01-26 14:50] LABS: O2 Tension (PaO2) 514.6 mmHg (> 70.0); Puncture Site ALINE
--- NOTE | 2019-01-26 14:50 | RAD ---
EXAM: Supine chest: INDICATIONS: Postop follow-up. Postop sternotomy. COMPARISON: 01/22/2019 FINDINGS: ET tube is well above rikki. Postop sternotomy change. Poor inspiration. Central line over lies the right atrium. Lungs appear aerated and clear. Evidence of small effusions and bibasilar atelectasis.
[2019-01-26 14:51] LABS: Actual Bicarbonate (HCO3a) 22.8 mEq/L (22-28); Analyzer IN Cardio OR; CO2 Tension 39.1 mmHg (35.0-45.0); Calcium, Ionized 1.05 mmol/L (1.12-1.30); Carboxyhemoglobin (COHb) 0.1 gm% (0.0-3.0); Hemoglobin (Hb) 11.5 g/dL (14.0-18.0); O2 Tension (PaO2) 430.3 mmHg (> 70.0); Potassium - ABG Lab 4.92 mmol/L (3.70-5.30); Puncture Site ALINE; pH, Arterial 7.38 (7.35-7.45)
[2019-01-26 14:51] LABS: #Basophils 0.1 thou/uL (0.0-0.2); #Eosinphils 0.2 thou/uL (0.0-0.7); #Lymphocytes 2.3 thou/uL (1.20-3.40); #Monocytes 1.4 thou/uL (0.11-0.59); #Neutrophils 15.3 thou/uL (1.40-6.50); %Basophils 0.3 % (0.0-1.0); %Eosinophils 0.8 % (0.0-10.0); %Lymphocytes 12.1 % (21.0-51.0); %Monocytes 7.3 % (0.0-10.0); %Neutrophils 79.5 % (42.0-75.0); Hemoglobin 14.3 g/dL (14.0-18.0); Mean Corpuscular HGB CONC 33.6 g/dL (32.0-36.0); Mean Corpuscular Hemoglobin 30.6 pg (27.0-31.0); Mean Corpuscular Volume 90.9 fL (78.0-98.0); Mean Platelet Volume 7.5 fL (7.4-10.4); Platelet Count 152 thou/uL (130-400); RBC Distribution Width 12.5 % (11.5-14.5); Red Blood Cell (RBC) Count 4.68 mill/uL (4.70-6.10); White Blood Cell (WBC) Count 19.2 thou/uL (4.8-10.8)
[2019-01-26 14:55] LABS: INR-International Normal Ratio 1.4; PTT 34.8 SEC (22.9-36.1); Prothrombin Time 17.6 SEC (12.0-14.7)
[2019-01-26 15:00] LABS: Anion Gap 9 mmol/L (10-20); BUN (Urea Nitrogen) 14 mg/dL (8.4-25.7); Calc. Creatinine Clearance 76 mL/min (70-130); Calcium 8.1 mg/dL (7.8-10.44); Carbon Dioxide 24 mmol/L (23-31); Chloride 113 mmol/L (98-107); Estimated GFR-MDRD 54; Glucose 77 mg/dL (80-115); Potassium 4.2 mmol/L (3.5-5.1); Sodium 142 mmol/L (136-145)
[2019-01-26] MEDS ORDERED: Magnesium 2 GM/50 ML 2 GM in Premix Bag 1 BAG IVPB SCH (15:00)
[2019-01-26] MEDS ORDERED: Morphine 2 MG/ML SYRINGE SLOW IVP PRN (15:07)
[2019-01-26] MEDS ORDERED: Dextrose 50% Abboject 50 ML SYRINGE SLOW IVP PRN (15:12)
[2019-01-26] MEDS ORDERED: Insulin Regular 300 UNITS/3 ML VIAL SC PRN (15:12)
[2019-01-26] MEDS ORDERED: Dextrose 5% in Water 1,000 ML IV PRN (15:12)
[2019-01-26] MEDS ORDERED: HUMULIN R 100 UNITS in Sodium Chloride 0.9% 100 ML IVPB SCH (15:12)
[2019-01-26 16:00] LABS: Actual Bicarbonate (HCO3a) 20.1 mEq/L (22-28); Base Excess (BEa) -5.4 mEq/L (-2.0 to +3.0); CO2 Tension 39.3 mmHg (35.0-45.0); Calcium, Ionized 1.11 mmol/L (1.12-1.30); Carboxyhemoglobin (COHb) 1.4 gm% (0.0-3.0); O2 Tension (PaO2) 80.7 mmHg (> 70.0); Potassium - ABG Lab 3.96 mmol/L (3.70-5.30); pH, Arterial 7.33 (7.35-7.45)
[2019-01-26] MEDS: CEFAZOLIN 2 GM in Premix Bag 1 BAG IVPB SCH ×2 (16:41→23:10)
[2019-01-26] MEDS: Fentanyl 100 MCG/2 ML VIAL SLOW IVP PRN (16:47)
[2019-01-26] MEDS: Ketorolac Tromethamine 30 MG/ML VIAL IVP SCH ×2 (17:56→23:10)
[2019-01-26 19:50] LABS: Hemoglobin 13.5 g/dL (14.0-18.0)
[2019-01-26 20:02] LABS: Potassium 4.2 mmol/L (3.5-5.1)
--- NOTE | 2019-01-26 20:10 | OP ---
DATE OF PROCEDURE: 01/26/2019 PREOPERATIVE DIAGNOSES: Coronary artery disease/hypertension/dyslipidemia/non-ST elevation myocardial infarctions. POSTOPERATIVE DIAGNOSES: Coronary artery disease/hypertension/dyslipidemia/non-ST elevation myocardial infarctions. PROCEDURES PERFORMED: Coronary artery bypass grafting x4; 1. Left internal mammary artery 2.5 mm left anterior descending - good conduit and target. 2. Reverse saphenous vein 1.25 mm diagonal - good conduit and small target. 3. Reverse saphenous vein 1.5 mm high ramus - good conduit and target. 4. Reverse saphenous vein 2.0 mm obtuse marginal - good conduit and target. CO-SURGEON: Rod Warren MD ANESTHESIA: General endotracheal - Sada Guardado CRNA PUMP TIME: 72 minutes. CROSS-CLAMP TIME: 48 minutes. LOW CORE TEMPERATURE: 34 degrees Celsius. SHOE REPAIRER APPRENTICE: Susy Rowe. DRAINS: 24-Citizen Of [place] chest tube x2. DRIPS: None. TRANSFUSIONS: None. DESCRIPTION OF PROCEDURE: After consent was obtained, the patient was brought to the operating room, placed in supine position on the operating room table. Appropriate central line was placed, and general endotracheal anesthesia induced. Chest and legs were prepped and draped in usual sterile fashion. Greater saphenous vein was harvested from the left lower extremity utilizing an endoscopic technique. Wounds were irrigated and closed in layers. Median sternotomy was performed. Left internal mammary artery was harvested as a pedicle graft. The patient was systemically heparinized. The distal pedicle was divided and infused with papaverine. Thymic fat and pericardium were divided with electrocautery. Pericardial stay sutures were placed. Aortic and atrial cannulation were performed. After adequate heparinization, retrograde prime was performed. The patient was placed on cardiopulmonary bypass. Distal targets were marked. Aortic cross-clamp was applied and antegrade sanguineous cardioplegic arrest was obtained. A 1 L of cold [place] cardioplegia was given. Topical cold solution was used. Reverse saphenous vein was anastomosed to the OM in an end-to-side fashion with running 7-0 Prolene suture. Anastomosis was tested and was hemostatic. Reverse saphenous vein was anastomosed to high ramus in end-to-side fashion with running 7-0 Prolene suture. Anastomosis was tested and was hemostatic. Reverse saphenous vein was anastomosed to the second diagonal in end-to-side fashion using 7-0 Prolene suture. Anastomosis was tested and was hemostatic. Mammary artery was brought through and then the pericardium anastomosed to distal LAD in an end-to-side fashion with running 7-0 Prolene suture. On release, mammary claims good hooding anastomosis and good distal flow. Pedicle was secured with interrupted 6-0 Prolene suture. Cross-clamp was removed and partial occluding clamp placed. Saphenous veins were anastomosed to individual punch sites with running 6-0 Prolene suture. Partial occluding clamp was removed and graft was deaired. Anastomoses were inspected for hemostasis, which was good. The patient was warmed and weaned from cardiopulmonary bypass. After resumption of sinus rhythm, good hemodynamics, temperature greater than 36.5, bypass was discontinued. Transfusions were given. Protamine was administered. Decannulation was performed. A pursestring suture was secured. A 24-Citizen [place] chest tubes were placed in the mediastinum. Sternum was treated with vancomycin paste. After adequate hemostasis have been obtained, the sternum was closed with a #7 wire, three in the manubrium and one in the distal sternum. Four zip ties were placed in body of sternum. Sternum was treated with platelet rich plasma. Wires were twisted. Zip ties were tied and cut. Wounds were irrigated with platelet poor plasma and closed in multiple layers. Needle, sponge, and instrument counts were all reported as correct at the end of the procedure. The patient was transferred to the intensive care unit in stable, but critical condition. Job ID: [id number]
[2019-01-26] MEDS: Famotidine 20 MG TAB PO SCH (20:13)
[2019-01-26] MEDS ORDERED: Atorvastatin Calcium 20 MG TAB PO SCH (21:00)
[2019-01-26] MEDS ORDERED: Famotidine/PF 20 mg/2ml Vial SLOW IVP SCH (21:00)
[2019-01-27] MEDS: traMADol HCl 50 MG TAB PO PRN ×2 (03:03→12:53)
[2019-01-27 05:06] LABS: #Basophils 0.1 thou/uL (0.0-0.2); #Lymphocytes 0.9 thou/uL (1.20-3.40); #Monocytes 1.4 thou/uL (0.11-0.59); #Neutrophils 13.7 thou/uL (1.40-6.50); %Basophils 0.6 % (0.0-1.0); %Eosinophils 0.1 % (0.0-10.0); %Lymphocytes 5.4 % (21.0-51.0); %Monocytes 8.7 % (0.0-10.0); %Neutrophils 85.2 % (42.0-75.0); Hemoglobin 12.7 g/dL (14.0-18.0); Mean Corpuscular HGB CONC 33.8 g/dL (32.0-36.0); Mean Corpuscular Hemoglobin 30.6 pg (27.0-31.0); Mean Corpuscular Volume 90.4 fL (78.0-98.0); Platelet Count 149 thou/uL (130-400); RBC Distribution Width 12.5 % (11.5-14.5); Red Blood Cell (RBC) Count 4.16 mill/uL (4.70-6.10); White Blood Cell (WBC) Count 16.1 thou/uL (4.8-10.8)
[2019-01-27] MEDS: Ketorolac Tromethamine 30 MG/ML VIAL IVP SCH ×5 (05:12→23:23)
[2019-01-27] MEDS: Fentanyl 100 MCG/2 ML VIAL SLOW IVP PRN (05:12)
[2019-01-27 05:27] LABS: Anion Gap 13 mmol/L (10-20); BUN (Urea Nitrogen) 19 mg/dL (8.4-25.7); Calc. Creatinine Clearance 71 mL/min (70-130); Carbon Dioxide 20 mmol/L (23-31); Chloride 110 mmol/L (98-107); Estimated GFR-MDRD 49; Glucose 182 mg/dL (80-115); Potassium 4.2 mmol/L (3.5-5.1); Sodium 139 mmol/L (136-145)
[2019-01-27] MEDS ORDERED: Dextrose 5% in Water 1,000 ML IV PRN (06:08)
[2019-01-27] MEDS ORDERED: Dextrose 50% Abboject 50 ML SYRINGE SLOW IVP PRN (06:08)
[2019-01-27] MEDS ORDERED: HumaLOG 300 UNITS/3 ML VIAL SC PRN (06:08)
--- NOTE | 2019-01-27 07:58 | PDOC.PN ---
- Subjective Encounter Start Date: 01/27/19 Encounter Start Time: 10:20 Subjective: Patient doing well, off the vent. No cough. A little congestion and -: irritation in back of throat. No other complaints. - Objective Resuscitation Status - Order Detail: 01/23/19 10:09 Resuscitation Status Routine Co-Sign Provider: Resuscitation Status: FULL: Full Resuscitation MAR Reviewed: Yes Vital Signs & Weight: Vital Signs (12 hours) Temp Pulse Ox 01/27/19 07:33 96 01/27/19 07:00 98.8 F 01/27/19 04:00 99.5 F 01/27/19 00:00 99.0 F 01/26/19 20:00 97.8 F 95 Weight Weight 227 lb 14.4 oz Most Recent Monitor Data Heart Rate from ECG 105 NIBP 93/55 NIBP BP-Mean 67 Respiration from ECG 28 SpO2 97 I&O: 01/26/19 01/27/19 01/28/19 06:59 06:59 06:59 Intake Total 1039.3 100 Output Total 200 1587 55 Balance -200 -547.7 45 Result Diagrams: 01/27/19 04:35 01/27/19 04:35 Additional Labs: Accuchecks 01/27/19 01/27/19 01/27/19 05:59 04:41 02:56 POC Glucose 159 H 186 H 123 H 01/27/19 01/27/19 01/26/19 01:35 00:25 23:16 POC Glucose 123 H 126 H 111 H 01/26/19 01/26/19 01/26/19 22:16 21:05 20:19 POC Glucose 155 H 156 H 165 H 01/26/19 01/26/19 01/26/19 19:25 18:06 16:53 POC Glucose 173 H 178 H 177 H 01/26/19 01/26/19 15:23 14:22 POC Glucose 127 H 75 Phys Exam - Physical Examination Constitutional: NAD HEENT: moist MMs Respiratory: no wheezing, no rales, no rhonchi, clear to auscultation bilateral sternotomy with dressing c/d/i Cardiovascular: RRR Gastrointestinal: soft, non-tender, positive bowel sounds LLE with JOVI bandage c/d/i Neurological: non-focal, moves all 4 limbs Psychiatric: normal affect, A&O x 3 Dx/Plan (1) Unstable angina Status: Resolved Comment: pain resolved (2) CAD (coronary artery disease) Code(s): I25.10 - ATHSCL HEART DISEASE OF [place] CORONARY ARTERY W/O ANG PCTRS Status: Acute Qualifiers: Coronary Disease-Associated Artery/Lesion type: [place] artery Comment: severe 3-vessel disease, s/p CABG x4 01/26/2019 (3) Dilated aortic root Code(s): I77.810 - THORACIC AORTIC ECTASIA Status: Acute Comment: 4 cm (4) Diabetes mellitus type 2 in obese Code(s): E11.69 - TYPE 2 DIABETES MELLITUS WITH OTHER SPECIFIED COMPLICATION; E66.9 - OBESITY, UNSPECIFIED Status: Chronic (5) Hypertension Code(s): I10 - ESSENTIAL (PRIMARY) HYPERTENSION Status: Chronic (6) Dyslipidemia Code(s): E78.5 - HYPERLIPIDEMIA, UNSPECIFIED Status: Chronic (7) Hypothyroidism Code(s): E03.9 - HYPOTHYROIDISM, UNSPECIFIED Status: Chronic (8) Rheumatoid arthritis Code(s): M06.9 - RHEUMATOID ARTHRITIS, UNSPECIFIED Status: Chronic (9) Peripheral neuropathy Code(s): G62.9 - POLYNEUROPATHY, UNSPECIFIED Status: Chronic (10) Back pain Code(s): M54.9 - DORSALGIA, UNSPECIFIED Status: Chronic Qualifiers: Back pain location: thoracic back pain Chronicity: chronic (11) Chronic kidney disease, stage 3 Code(s): N18.3 - CHRONIC KIDNEY DISEASE, STAGE 3 (MODERATE) Status: Chronic Comment: monitor closely after cath and CABG - Plan cont current plan of care, PT/OT routine post CABG care * . - Discharge Day Encounter end time: 10:30
--- NOTE | 2019-01-27 08:02 | RAD ---
CHEST ONE VIEW: HISTORY: Postop open heart. COMPARISON: 01/26/2019 FINDINGS: Postop midline sternotomy with chest tubes and right central line in place. Minimal pleural and pare nchymal opacity changes in the bases, stable. No significant pneumothorax or other acute process. IMPRESSION: Stable postoperative changes. POS: OFF
[2019-01-27] MEDS: Aspirin 325 MG TAB PO SCH (08:38)
[2019-01-27] MEDS: Famotidine 20 MG TAB PO SCH ×2 (08:38→20:43)
[2019-01-27] MEDS: CEFAZOLIN 2 GM in Premix Bag 1 BAG IVPB SCH (08:38)
[2019-01-27 08:58] LABS: Actual Bicarbonate (HCO3a) 22.2 mEq/L (22-28); Analyzer IN Cardio OR; Base Excess (BEa) -2.9 mEq/L (-2.0 to +3.0); Calcium, Ionized 1.13 mmol/L (1.12-1.30); Carboxyhemoglobin (COHb) 0.9 gm% (0.0-3.0); Hemoglobin (Hb) 13.9 g/dL (14.0-18.0); O2 Tension (PaO2) 248.7 mmHg (> 70.0); Potassium - ABG Lab 4.13 mmol/L (3.70-5.30); Puncture Site ALINE; pH, Arterial 7.36 (7.35-7.45)
[2019-01-27] MEDS ORDERED: Insulin Glargine 15 UNITS in Pre-Filled Syringe 1 EACH SC SCH (09:00)
[2019-01-27 09:30] LABS: ALV-art Gradient 155.375 (0-20); Puncture Site ALINE
[2019-01-27] MEDS: Magnesium 2 GM/50 ML 2 GM in Premix Bag 1 BAG IVPB SCH (09:54)
[2019-01-27] MEDS: HumaLOG 300 UNITS/3 ML VIAL SC PRN ×2 (11:19→17:14)
[2019-01-27] MEDS: Insulin Glargine 30 UNITS in Pre-Filled Syringe 1 EACH SC SCH (20:43)
[2019-01-27] MEDS: Rosuvastatin 20 MG TAB PO SCH (20:43)
[2019-01-28] MEDS: Ketorolac Tromethamine 30 MG/ML VIAL IVP SCH ×3 (05:30→17:30)
[2019-01-28 05:55] LABS: #Eosinphils 0.2 thou/uL (0.0-0.7); #Lymphocytes 1.9 thou/uL (1.20-3.40); #Monocytes 1.1 thou/uL (0.11-0.59); #Neutrophils 9.1 thou/uL (1.40-6.50); %Basophils 0.2 % (0.0-1.0); %Eosinophils 1.4 % (0.0-10.0); %Lymphocytes 15.4 % (21.0-51.0); %Monocytes 9.1 % (0.0-10.0); %Neutrophils 73.9 % (42.0-75.0); Hemoglobin 12.6 g/dL (14.0-18.0); Mean Corpuscular HGB CONC 34.3 g/dL (32.0-36.0); Mean Corpuscular Hemoglobin 31.3 pg (27.0-31.0); Mean Corpuscular Volume 91.2 fL (78.0-98.0); Mean Platelet Volume 7.9 fL (7.4-10.4); Platelet Count 133 thou/uL (130-400); RBC Distribution Width 12.6 % (11.5-14.5); Red Blood Cell (RBC) Count 4.02 mill/uL (4.70-6.10); White Blood Cell (WBC) Count 12.3 thou/uL (4.8-10.8)
[2019-01-28 06:11] LABS: Anion Gap 10 mmol/L (10-20); BUN (Urea Nitrogen) 24 mg/dL (8.4-25.7); Calc. Creatinine Clearance 79 mL/min (70-130); Calcium 8.5 mg/dL (7.8-10.44); Carbon Dioxide 24 mmol/L (23-31); Chloride 109 mmol/L (98-107); Estimated GFR-MDRD 48; Glucose 130 mg/dL (80-115); Sodium 139 mmol/L (136-145)
[2019-01-28] MEDS ORDERED: diphenhydrAMINE 25 MG CAP PO PRN (07:55)
[2019-01-28] MEDS ORDERED: Artificial Tears 18 DROP/0.9 ML EA EYE PRN (07:55)
[2019-01-28] MEDS ORDERED: Zolpidem Tartrate 5 MG TAB PO PRN (07:55)
[2019-01-28] MEDS ORDERED: Nitroglycerin 0.4 MG TAB (25 Tab Bottle) SL PRN (07:55)
[2019-01-28] MEDS ORDERED: Bisacodyl 5 MG TAB PO PRN (07:55)
[2019-01-28] MEDS ORDERED: Mineral Oil ENEMA PR PRN (07:55)
[2019-01-28] MEDS ORDERED: Guaifenesin DM 100-10/5 ML UDCUP PO PRN (07:55)
[2019-01-28] MEDS ORDERED: Mag-Al 1200 mg/1200 mg/30 ML UDCUP PO PRN (07:55)
[2019-01-28] MEDS ORDERED: Bisacodyl 10 MG SUPP PR PRN (07:55)
[2019-01-28] MEDS: Famotidine 20 MG TAB PO SCH ×2 (08:22→20:43)
[2019-01-28] MEDS: Aspirin 325 MG TAB PO SCH (08:22)
[2019-01-28] MEDS: Insulin Glargine 30 UNITS in Pre-Filled Syringe 1 EACH SC SCH ×2 (08:23→21:06)
[2019-01-28] MEDS: Magnesium 2 GM/50 ML 2 GM in Premix Bag 1 BAG IVPB SCH (08:23)
--- NOTE | 2019-01-28 08:39 | PDOC.PN ---
- Subjective Encounter Start Date: 01/28/19 Encounter Start Time: 12:20 Subjective: Patient doing well. Had a little cough earlier but didn't hurt too bad. -: Eating well. Chest tubes out. Hare out. - Objective Resuscitation Status - Order Detail: 01/23/19 10:09 Resuscitation Status Routine Co-Sign Provider: Resuscitation Status: FULL: Full Resuscitation MAR Reviewed: Yes Vital Signs & Weight: Vital Signs (12 hours) Temp 01/28/19 03:00 98 F 01/27/19 23:00 98.2 F Weight Weight 260 lb 2 oz Most Recent Monitor Data Heart Rate from ECG 110 NIBP 105/66 NIBP BP-Mean 79 Respiration from ECG 25 SpO2 93 I&O: 01/27/19 01/28/19 01/29/19 06:59 06:59 06:59 Intake Total 1039.3 2820 Output Total 1587 945 Balance -547.7 1875 Result Diagrams: 01/28/19 04:30 01/28/19 04:30 Additional Labs: Accuchecks 01/28/19 01/27/19 01/27/19 05:35 20:42 16:09 POC Glucose 126 H 190 H 184 H 01/27/19 01/26/19 01/26/19 11:14 13:52 12:45 POC Glucose 203 H 78 141 H 01/26/19 01/26/19 01/26/19 12:04 11:33 10:45 POC Glucose 148 H 146 H 133 H Phys Exam - Physical Examination Constitutional: NAD HEENT: moist MMs Respiratory: no wheezing, no rales, no rhonchi sternotomy dressing removed, incision closed, c/d/i Cardiovascular: RRR, no significant murmur Gastrointestinal: soft Neurological: non-focal, moves all 4 limbs Psychiatric: normal affect, A&O x 3 Dx/Plan (1) Unstable angina Status: Resolved Comment: pain resolved (2) CAD (coronary artery disease) Code(s): I25.10 - ATHSCL HEART DISEASE OF [place] CORONARY ARTERY W/O ANG PCTRS Status: Acute Qualifiers: Coronary Disease-Associated Artery/Lesion type: [place] artery Comment: severe 3-vessel disease, s/p CABG x4 01/26/2019 (3) Dilated aortic root Code(s): I77.810 - THORACIC AORTIC ECTASIA Status: Acute Comment: 4 cm (4) Diabetes mellitus type 2 in obese Code(s): E11.69 - TYPE 2 DIABETES MELLITUS WITH OTHER SPECIFIED COMPLICATION; E66.9 - OBESITY, UNSPECIFIED Status: Chronic (5) Hypertension Code(s): I10 - ESSENTIAL (PRIMARY) HYPERTENSION Status: Chronic (6) Dyslipidemia Code(s): E78.5 - HYPERLIPIDEMIA, UNSPECIFIED Status: Chronic (7) Hypothyroidism Code(s): E03.9 - HYPOTHYROIDISM, UNSPECIFIED Status: Chronic (8) Rheumatoid arthritis Code(s): M06.9 - RHEUMATOID ARTHRITIS, UNSPECIFIED Status: Chronic (9) Peripheral neuropathy Code(s): G62.9 - POLYNEUROPATHY, UNSPECIFIED Status: Chronic (10) Back pain Code(s): M54.9 - DORSALGIA, UNSPECIFIED Status: Chronic Qualifiers: Back pain location: thoracic back pain Chronicity: chronic (11) Chronic kidney disease, stage 3 Code(s): N18.3 - CHRONIC KIDNEY DISEASE, STAGE 3 (MODERATE) Status: Chronic Comment: monitor closely after cath and CABG - Plan cont current plan of care, PT/OT, out of bed/ambulate continue post CABG care, likely to the floor today * . - Discharge Day Encounter end time: 12:30
[2019-01-28] MEDS: HumaLOG 300 UNITS/3 ML VIAL SC PRN (17:12)
[2019-01-28] MEDS: Rosuvastatin 20 MG TAB PO SCH (20:43)
[2019-01-28] MEDS: Metoprolol Tartrate 25 MG TAB PO SCH (20:43)
[2019-01-29] MEDS: Ketorolac Tromethamine 30 MG/ML VIAL IVP SCH ×2 (00:04→06:04)
[2019-01-29] MEDS: Insulin Glargine 30 UNITS in Pre-Filled Syringe 1 EACH SC SCH ×2 (09:35→20:59)
[2019-01-29] MEDS: Aspirin 325 MG TAB PO SCH (09:35)
[2019-01-29] MEDS: Famotidine 20 MG TAB PO SCH ×2 (09:35→20:59)
[2019-01-29] MEDS: Metoprolol Tartrate 25 MG TAB PO SCH ×2 (09:35→20:59)
--- NOTE | 2019-01-29 14:49 | PDOC.PN ---
- Subjective Encounter Start Date: 01/29/19 Encounter Start Time: 13:30 Patient seen and examined for CAD. s/p CABG. Pain controlled. No N/V/fever. Having BM. No new complaints. No overnight events - Objective Resuscitation Status - Order Detail: 01/23/19 10:09 Resuscitation Status Routine Co-Sign Provider: Resuscitation Status: FULL: Full Resuscitation MAR Reviewed: Yes Vital Signs & Weight: Vital Signs (12 hours) Temp Pulse Pulse Pulse Resp BP BP 01/29/19 14:02 73 87 131/75 133/66 01/29/19 12:02 98.1 F 70 16 01/29/19 09:52 103 H 98 128/67 110/70 01/29/19 08:35 01/29/19 07:26 97.4 F L 78 16 01/29/19 03:30 98.3 F 74 20 BP Pulse Ox Pulse Ox Pulse Ox 01/29/19 14:02 01/29/19 12:02 112/77 95 01/29/19 09:52 95 94 L 01/29/19 08:35 97 01/29/19 07:26 145/68 H 93 L 01/29/19 03:30 120/66 94 L Weight Weight 259 lb Most Recent Monitor Data Heart Rate from ECG 121 NIBP 142/77 NIBP BP-Mean 98 Respiration from ECG 38 SpO2 95 I&O: 01/28/19 01/29/19 01/30/19 06:59 06:59 06:59 Intake Total 2820 1610 Output Total 945 750 Balance 1875 860 Result Diagrams: 01/28/19 04:30 01/28/19 04:30 Additional Labs: Accuchecks 01/29/19 01/29/19 01/28/19 10:49 05:38 20:36 POC Glucose 135 H 172 H 128 H 01/28/19 16:53 POC Glucose 220 H EKG Reviewed by me: Yes (Tele SR) Phys Exam - Physical Examination Constitutional: NAD Respiratory: no wheezing, no rhonchi Cardiovascular: RRR, no rub Gastrointestinal: soft, non-tender, positive bowel sounds Musculoskeletal: no edema Neurological: moves all 4 limbs Dx/Plan - Plan DVT proph w/SCDs IMPRESSION: NSTEMI CAD s/p CABG CKD 3 HTN DM2 Hypothyroidism Obesity BMI 37.2 PLAN: Cont ASA/Metoprolol and Statins Cont supportive care Cont Cardiac rehab Cont current dose of Lantus with sliding scale Review of Systems - Review of Systems Respiratory: negative: Cough, Dry, Shortness of Breath, Hemoptysis, SOB with Excertion, Pleuritic Pain, Sputum, Wheezing Cardiovascular: negative: chest pain, palpitations, orthopnea, paroxysmal nocturnal dyspnea, edema, light headedness, other Gastrointestinal: negative: Nausea, Vomiting, Abdominal Pain, Diarrhea, Constipation, Melena, Hematochezia, Other - Medications/Allergies Allergies/Adverse Reactions: Allergies Allergy/AdvReac Type Severity Reaction Status Date / Time hydrocodone [Hydrocodone] Allergy Severe Short of Verified 11/02/18 11:47 Breath codeine Allergy Verified 11/02/18 11:47 Medications: Current Medications Acetaminophen (Tylenol) 650 mg PO Q6H PRN PRN Reason: Headache/Fever Or Mild Pain Al Hydroxide/Mg Hydroxide (Maalox) 30 ml PO Q4H PRN PRN Reason: Indigestion Albuterol/Ipratropium (Duoneb) 3 ml NEB [id number] PRN PRN Reason: SHORTNESS OF BREATH Artificial Tears (Tears Naturale) 0 drop EA EYE PRN PRN PRN Reason: Dry Eyes Aspirin (Aspirin) 325 mg PO DAILY [facility] Last Admin: 01/29/19 09:35 Dose: 325 mg Bisacodyl (Dulcolax) 10 mg PO Q12H PRN PRN Reason: Constipation Last Admin: 01/27/19 14:59 Dose: 10 mg Bisacodyl (Dulcolax) 10 mg MO Q12H PRN PRN Reason: Constipation Dextrose/Water (Dextrose 50%) 25 gm SLOW IVP PRN PRN PRN Reason: Hypoglycemia Diphenhydramine HCl (Benadryl) 25 mg PO Q6H PRN PRN Reason: Itching & Insomnia or Ignacio Samy Famotidine (Pepcid) 20 mg PO BID [facility] Last Admin: 01/29/19 09:35 Dose: 20 mg Glucagon (Glucagon) 1 mg IM PRN PRN PRN Reason: Hypoglycemia Guaifenesin/Dextromethorphan (Robitussin Dm) 15 ml PO Q4H PRN PRN Reason: Cough Hydralazine HCl (Apresoline) 10 mg SLOW IVP Q6H PRN PRN Reason: To Maintain SBP< 140mmHG Dextrose/Water (D5w) 1,000 mls @ 0 mls/hr IV .Q0M PRN PRN Reason: Hypoglycemia Insulin Glargine 30 units/ (Miscellaneous Medication) 0.3 mls @ 0 mls/hr SC BID [facility] Last Admin: 01/29/19 09:35 Dose: 0.3 mls Insulin Human Lispro (Humalog) 0 units SC .MODERATE SLIDING SC PRN PRN Reason: Moderate Correctional Scale Last Admin: 01/28/19 17:12 Dose: 4 unit Insulin Human Lispro (Humalog) 0 units SC .BEDTIME SLIDING SC PRN PRN Reason: Bedtime Correctional Scale Insulin Human Regular (Humulin R) 0 units SC Q4H PRN; Protocol PRN Reason: POST OP SLIDING SCALE Metoprolol Tartrate (Lopressor) 25 mg PO BID [facility] Last Admin: 01/29/19 09:35 Dose: 25 mg Mineral Oil (Fleet Mineral Oil) 133 ml MO DAILYPRN PRN PRN Reason: Constipation Morphine Sulfate (Morphine) 2 mg SLOW IVP Q15MIN PRN PRN Reason: Severe Pain (7-10) Nitroglycerin (Nitrostat) 0.4 mg SL Q5MIN PRN PRN Reason: Chest Pain Ondansetron HCl (Zofran) 4 mg IVP Q6H PRN PRN Reason: Nausea/Vomiting Potassium Chloride (Kcl) 20 meq IVPB PRN PRN PRN Reason: K level </= 4.0 Last Admin: 01/28/19 08:24 Dose: 20 meq Promethazine HCl (Phenergan) 6.25 mg IM Q4H PRN PRN Reason: Nausea/Vomiting Rosuvastatin Calcium (Crestor) 20 mg PO [facility] Last Admin: 01/28/19 20:43 Dose: 20 mg Sodium Chloride (Flush - Normal Saline) 10 ml IVF PRN PRN PRN Reason: Saline Flush Last Admin: 01/28/19 17:31 Dose: 10 ml Sodium Chloride (Flush - Normal Saline) 10 ml IVF PRN PRN PRN Reason: Saline Flush Tramadol HCl (Ultram) 50 mg PO Q6H PRN PRN Reason: Pain (1-5) Last Admin: 01/27/19 12:53 Dose: 50 mg Tramadol HCl (Ultram) 100 mg PO Q6H PRN PRN Reason: Pain (6-10) Last Admin: 01/26/19 20:15 Dose: 100 mg Zolpidem Tartrate (Ambien) 5 mg PO HSPRN PRN PRN Reason: Insomnia
[2019-01-29] MEDS: Rosuvastatin 20 MG TAB PO SCH (20:59)
[2019-01-30 07:57] VITALS: BP 124/69; TEMP 97.9
[2019-01-30] MEDS: Insulin Glargine 30 UNITS in Pre-Filled Syringe 1 EACH SC SCH (07:59)
[2019-01-30] MEDS: Metoprolol Tartrate 25 MG TAB PO SCH (08:00)
[2019-01-30] MEDS: Famotidine 20 MG TAB PO SCH (08:00)
[2019-01-30] MEDS: Aspirin 325 MG TAB PO SCH (08:00)
--- NOTE | 2019-01-30 13:26 | EKG ---
Test Reason : POST CABG Blood Pressure : / mmHG Vent. Rate : 087 BPM Atrial Rate : 087 BPM P-R Int : 180 ms QRS Dur : 088 ms QT Int : 398 ms P-R-T Axes : 053 -38 076 degrees QTc Int : 478 ms Normal sinus rhythm Left axis deviation Prolonged QT Abnormal ECG No previous ECGs available Confirmed by DR. Mason BAR ([id number]) on 01/30/2019 1:26:04 PM Referred By: Shilpa GOMEZ Confirmed By:DR. Mason BAR
--- NOTE | 2019-01-30 17:18 | DIS ---
DATE OF ADMISSION: 01/24/2019 DATE OF DISCHARGE: 01/30/2019 DISCHARGE DISPOSITION: Home. FOLLOWUP: 1. Follow up with primary care physician, Dr. Kim Quinonez next week. 2. Follow up with Cardiology, Dr. Tera Silva. 3. Follow up with Cardiovascular, Dr. Rolando Kingston as scheduled. ALLERGIES: THE PATIENT IS ALLERGIC TO CODEINE AND HYDROCODONE. THE PATIENT WAS SEEN ON THE DAY OF DISCHARGE. DENIES ANY NEW COMPLAINTS. NO CHEST PAIN, SHORTNESS OF BREATH, OR PALPITATIONS. DISCHARGE MEDICATIONS: 1. Metoprolol tartrate 25 mg b.i.d. 2. Aspirin 325 mg daily. 3. All other home medications were left unchanged. LABORATORY FINDINGS: Creatinine 1.46. Maximum troponin was 0.176. BRIEF HOSPITAL COURSE: The patient is a 68-year-old male with diabetes mellitus type 2, hypertension, and obesity, presented to the hospital on 23 Jan 2019 with chest discomfort. His workup was consistent with unstable angina/[id number] PR. His last cardiac catheterization was in 2013, which showed moderate coronary artery disease. Repeat cardiac catheterization was performed this admission that showed 90% stenosis in the ramus, 90% stenosis in the LAD, 90% stenosis in the left circumflex, and 50% stenosis in the mid circumflex. RCA was nondominant. Left main had no lesion. Coronary artery bypass grafting was recommended. On 26 Jan 2019, the patient underwent coronary artery bypass grafting x4. He was monitored in the intensive care unit postop. Over the last 2 days, the patient has been on telemetry floor. He is doing well. His vital signs on the day of discharge show temperature 97.9, pulse 88, respirations 17, O2 saturation 93% on room air with blood pressure of 124/69. He has been cleared by Cardiology and Cardiovascular for discharge. FINAL DIAGNOSES: 1. Chest discomfort consistent with [id number] myocardial infarction. 2. Coronary artery disease, status post coronary artery bypass grafting. 3. Chronic kidney disease, stage 3. 4. Hypertension. 5. Hyperlipidemia. 6. Diabetes mellitus, type 2. 7. Hypothyroidism. 8. Obesity with a BMI of 37.2. PLAN: Plan of care was discussed with the patient in detail. He stated understanding. Job ID: [id number]
--- NOTE | 2019-02-02 10:15 | DIS ---
DATE OF ADMISSION: 01/24/2019 DATE OF DISCHARGE: 01/30/2019 DIAGNOSES: 1. Diabetes mellitus. 2. Hypertension. 3. Dyslipidemia. 4. Coronary artery disease. 5. Hypothyroidism. 6. Peripheral neuropathy. 7. Rheumatoid arthritis. PROCEDURES: 1. Cardiac catheterization. 2. Coronary artery bypass grafting x4. a. Left internal mammary artery to left anterior descending artery. b. Reverse saphenous vein graft to diagonal. c. Reverse saphenous vein graft to ramus. d. Reverse saphenous vein graft to obtuse marginal. DESCRIPTION OF HOSPITAL STAY: Mr. 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 He came to the emergency department. His troponin was positive at 0.17. He was admitted and electively underwent cardiac catheterization. Catheterization revealed severe three-vessel disease. On 01/26, he was taken for coronary artery bypass grafting as above. Postoperatively, he has done quite well. He has had no rhythm disturbances. At the time of discharge, he is ambulatory, tolerating a regular diet, having good bowel and bladder function. Incisions clean and dry without evidence of infection. DISCHARGE MEDICATIONS: 1. Aspirin 325 mg daily. 2. Insulin per his home routine. 3. Levothyroxine 75 mcg daily. 4. Lopressor 25 mg b.i.d. 5. Crestor 20 mg at bedtime. 6. Tramadol 50 mg q.6 hours p.r.n. pain. FOLLOWUP: Follow up is with me in [address] Silva in a month. Job ID: [id number]
== END 2019-01-30 11:06 | disposition home or self-care (01) | DRG 233 ==
LOC: ERS 23:12 → 2SW 01-23 02:01 → OBSVTOIN 01-24 21:14 → CCU 01-26 09:27 → 2NO 01-28 17:06
PROVIDERS: ADMIT Internal Medicine; ATTEND Internal Medicine
PROC: 4A023N7 Measurement of Cardiac Sampling and Pressure, Left Heart, Percutaneous Approach (ICD-10-PCS; principal; 2019-01-24)
PROC: B2111ZZ Fluoroscopy of Multiple Coronary Arteries using Low Osmolar Contrast (ICD-10-PCS; 2019-01-24)
PROC: B2151ZZ Fluoroscopy of Left Heart using Low Osmolar Contrast (ICD-10-PCS; 2019-01-24)
PROC: 02100Z9 Bypass Coronary Artery, One Artery from Left Internal Mammary, Open Approach (ICD-10-PCS; 2019-01-26)
PROC: 021209W Bypass Coronary Artery, Three Arteries from Aorta with Autologous Venous Tissue, Open Approach (ICD-10-PCS; 2019-01-26)
PROC: 06BQ4ZZ Excision of Left Saphenous Vein, Percutaneous Endoscopic Approach (ICD-10-PCS; 2019-01-26)
PROC: 5A1221Z Performance of Cardiac Output, Continuous (ICD-10-PCS; 2019-01-26)
DX: I25.110 Atherosclerotic heart disease of native coronary artery with unstable angina pectoris (principal); I21.4 Non-ST elevation (NSTEMI) myocardial infarction; E03.9 Hypothyroidism, unspecified; M19.91 Primary osteoarthritis, unspecified site; G47.30 Sleep apnea, unspecified; I77.810 Thoracic aortic ectasia; M06.9 Rheumatoid arthritis, unspecified; G89.29 Other chronic pain; I10 Essential (primary) hypertension; E11.42 Type 2 diabetes mellitus with diabetic polyneuropathy; E66.9 Obesity, unspecified; E78.5 Hyperlipidemia, unspecified; M54.14 Radiculopathy, thoracic region; Z96.653 Presence of artificial knee joint, bilateral; Z68.36 Body mass index [BMI] 36.0-36.9, adult; Z88.5 Allergy status to narcotic agent; Z79.82 Long term (current) use of aspirin; Z79.4 Long term (current) use of insulin; Z90.49 Acquired absence of other specified parts of digestive tract; Z90.89 Acquired absence of other organs
CPT/HCPCS: 36415; 36416; 36430; 71045; 80048; 80053; 80061; 82550; 82553; 82805; 82947; 83880; 84484; 85025; 85379; 85610; 85730; 86850; 86900; 86901; 93005; 93010; 93306; 93458; 93798; 94002; 94760; 96372; 99152; 99153; C1769; J0670; J0690; J1100; J1642; J1644; J1650; J1720; J1815; J1825; J1885; J2001; J2150; J2250; J2370; J2440; J2704; J2720; J3010; J3370; J3475; J3480; J3490; J7050; P9045; Q9967; S0017

== ENCOUNTER 2019-08-12 10:56 | Outpatient (CLI) | payer MEDICARE ==
--- NOTE | 2019-08-12 11:51 | CT ---
CT OF THE ABDOMEN AND PELVIS WITHOUT IV CONTRAST INDICATION: Hematuria COMPARISON: None FINDINGS: This examination is limited for the evaluation of solid organs and vascular structures due to the lac k of intravenous contrast. ABDOMEN: Lung bases: Clear Liver: There is an 8 mm hypodensity within segment 5 of the right hepatic lobe. Gallbladder: Normal appearing. Pancreas: Normal. Adrenal glands: Normal. Spleen: Normal. Kidneys and ureters: There are multiple bilateral nonobstructing renal calculi. The largest within th e left kidney is seen within the inferior pole measuring 2 cm. The left kidney is diffusely atrophic. The largest stone within the right kidney measures 7 mm. There are multiple nonobstructing stones within the right kidney. No ureteral calculus or hydronephrosis evident. There is a 1 cm stone within the posterior bladder. Vasculature: There are mild vascular calcifications seen involving the visualized vasculature. Lymph nodes:No lymphadenopathy. Free fluid in abdomen:No free fluid is evident. PELVIS: Small and large bowel: Normal Appendix:Not seen Bladder: Bladder stone as above Rectal and perirectal soft tissues:Normal. Reproductive structures: Prostate enlargement measuring 6.2 cm. Free fluid in pelvis: No free fluid is evident. Lymphadenopathy pelvis: No lymphadenopathy is evident. Osseous structures: No acute fracture or subluxation demonstrated. There is scattered degenerative a nd osteoarthritic changes. There is post surgical change of an interbody fusion at L4-5. There is advanced spondylosis of the lumbar spine. Soft tissues:Normal. IMPRESSION: 1. Bilateral nephrolithiasis. 2. Bladder stone. 3. Prostate enlargement. 4. Tiny 8 mm hypodensity within the right hepatic lobe, incompletely characterized on the current isidro dy. Follow-up right upper quadrant ultrasound is recommended for further characterization.
== END 2019-08-12 10:57 | disposition home or self-care (01) ==
LOC: BICCT 10:56
PROVIDERS: ATTEND Urology
DX: R31.29 Other microscopic hematuria (principal); N20.0 Calculus of kidney; N21.0 Calculus in bladder; N40.0 Benign prostatic hyperplasia without lower urinary tract symptoms; R93.2 Abnormal findings on diagnostic imaging of liver and biliary tract
CPT/HCPCS: 74176

== ENCOUNTER 2019-10-04 12:55 | Outpatient (CLI) | payer MEDICARE ==
[~2019-10-04 12:55] MED LIST: Furosemide 40 MG/4 ML VIAL ONE
--- NOTE | 2019-10-04 15:51 | NM ---
EXAM: Nuclear medicine renal scan with Lasix COMPARISON: CT abdomen/pelvis 08/12/2019 HISTORY: Calculus of kidney TECHNIQUE: A nuclear medicine renal exam was administered after administration of 8.1 mCi of techneti um 99m MAG3. 40 mg of Lasix was given 15 minutes prior to injection of the MAG3. FINDINGS: Time to peak is 0.4 minutes on the left and 2.3 minutes on the right. Time of one half max is 0.6 minutes on the left and 8.2 minutes on the right. The renal curves are both normal in appearance without evidence of obstruction. The angiographic phase shows a significantly smaller left kidney. There is symmetric excretion by the kidneys. Split renal function is 9% on the left and 91% on the right. IMPRESSION: Poorly functioning left kidney
== END 2019-10-04 12:56 | disposition home or self-care (01) ==
LOC: NM 12:55
PROVIDERS: ATTEND Urology
DX: N20.0 Calculus of kidney (principal); N26.1 Atrophy of kidney (terminal)
CPT/HCPCS: 78708; A4641; A9562; J1940

== ENCOUNTER 2019-10-29 07:16 | Outpatient (CLI) | payer MEDICARE ==
[2019-10-29 13:28] LABS: Hemoglobin 14.8 g/dL (14.0-18.0); Mean Corpuscular HGB CONC 33.6 g/dL (32.0-36.0); Mean Corpuscular Hemoglobin 31.1 pg (27.0-31.0); Mean Corpuscular Volume 92.6 fL (78.0-98.0); Mean Platelet Volume 7.3 fL (7.4-10.4); Platelet Count 173 thou/uL (130-400); RBC Distribution Width 11.8 % (11.5-14.5); Red Blood Cell (RBC) Count 4.76 mill/uL (4.70-6.10); White Blood Cell (WBC) Count 6.3 thou/uL (4.8-10.8)
[2019-10-29 13:33] LABS: Bacteria/HPF None Seen HPF (None Seen); Bilirubin Negative (Negative); Blood, Urine Negative (Negative); Clarity Clear (Clear); Glucose, Urine (Dipstick) Normal (Negative); INR-International Normal Ratio 1.1; Leukocyte Negative Leu/uL (Negative); Nitrite Negative (Negative); PTT 37.1 SEC (22.9-36.1); Protein, Urine (Dipstick) Negative (Neg-Trace); Prothrombin Time 14.1 SEC (12.0-14.7); RBC/HPF 0-3 HPF (0-3); Squamous Epithelial 0-3 HPF (0-3); Urobilinogen Normal mg/dL (Less than 2); WBC/HPF 0-3 HPF (0-3)
[2019-10-29 13:48] LABS: Anion Gap 10 mmol/L (10-20); BUN (Urea Nitrogen) 30 mg/dL (8.4-25.7); Calc. Creatinine Clearance 0 mL/min (70-130); Calcium 9.9 mg/dL (7.8-10.44); Carbon Dioxide 26 mmol/L (23-31); Chloride 106 mmol/L (98-107); Estimated GFR-MDRD 45; Glucose 126 mg/dL (80-115); Potassium 4.2 mmol/L (3.5-5.1); Sodium 138 mmol/L (136-145)
== END 2019-10-29 07:17 | disposition home or self-care (01) ==
LOC: LABBT 07:16
PROVIDERS: ATTEND Urology
DX: Z01.812 Encounter for preprocedural laboratory examination (principal); Z12.5 Encounter for screening for malignant neoplasm of prostate; N20.0 Calculus of kidney; E11.65 Type 2 diabetes mellitus with hyperglycemia; N40.1 Benign prostatic hyperplasia with lower urinary tract symptoms; R35.0 Frequency of micturition; N21.0 Calculus in bladder; I25.810 Atherosclerosis of coronary artery bypass graft(s) without angina pectoris; N26.1 Atrophy of kidney (terminal); R31.29 Other microscopic hematuria; S37.30XA Unspecified injury of urethra, initial encounter; Z80.42 Family history of malignant neoplasm of prostate
CPT/HCPCS: 80048; 81001; 85027; 85610; 85730; 87086

== ENCOUNTER 2019-11-10 07:03 | Day surgery (SDC) | payer MEDICARE ==
[2019-10-29 12:33] VITALS: BMI 34.0
[2019-11-10] MEDS ORDERED: Levofloxacin 500 mg/D5W 100 ml Premix Bag ONE (08:36)
[2019-11-10] MEDS ORDERED: Glycopyrrolate 0.2 MG/ML 5 ML SYRINGE ONE (09:37)
[2019-11-10] MEDS ORDERED: PHENYLEPHRINE-NS 100 MCG/ML 10 ML SYRINGE ONE (09:37)
[2019-11-10] MEDS ORDERED: Lidocaine 1% PF 5 ML VIAL ONE (09:37)
[2019-11-10] MEDS ORDERED: Fentanyl 100 MCG/2 ML VIAL ONE (09:37)
[2019-11-10] MEDS ORDERED: PROPOFOL 200 MG/20 ML VIAL ONE (09:37)
[2019-11-10] MEDS ORDERED: Ondansetron PF 4 MG/2 ML Vial ONE (09:37)
[2019-11-10] MEDS ORDERED: EPHEDRINE 25 MG/5 ML SYRINGE ONE (09:37)
[2019-11-10] MEDS ORDERED: Phenazopyridine HCl 97.5 MG TABLET ONE ×2 (11:07)
--- NOTE | 2019-11-10 11:43 | OP ---
DATE OF PROCEDURE: 11/10/2019 PRIMARY CARE PHYSICIAN: Guillaume Patel MD PREOPERATIVE DIAGNOSES: 1. A 68-year-old male with history of benign prostatic hyperplasia. 2. History of bladder calculi, 1 cm. 3. Nonfunctioning left kidney. 4. Multiple right renal calculi, punctate in nature, about 4 to 5 in number, largest 6 mm and 7 mm linear. POSTOPERATIVE DIAGNOSES: 1. A 68-year-old male with history of benign prostatic hyperplasia. 2. History of bladder calculi, 1 cm. 3. Nonfunctioning left kidney. 4. Multiple right renal calculi, punctate in nature, about 4 to 5 in number, largest 6 mm and 7 mm linear. PROCEDURES PERFORMED: Cystoscopy, meatal calibration and dilatation, laser lithotripsy of bladder calculi, evacuation of bladder stones, UroLift implant x5. ANESTHESIA: LMA. COMPLICATIONS: None apparent. DISPOSITION: To recovery room in stable condition. SPECIMEN: Bladder stone for chemical analysis. INTRAOPERATIVE FINDINGS: 1. Mild meatal stenosis about 16 -Finnish caliber, dilated to 24-Finnish with ease. 2. Bilobar hyperplasia of the prostate. 3. Bladder calculi. INDICATIONS FOR PROCEDURE AND HISTORY: Mr. Duarte is a pleasant 68-year-old male previously followed by Dr. Gruber, referred to me by Nephrology for evaluation of microscopic hematuria, kidney stone, BPH, renal insufficiency. The patient underwent workup demonstrating nonfunctioning left kidney on observation. He has nonobstructing right renal calculi on observation. The patient has BPH symptoms , his IPSS score is 23, he desires to proceed with BPH surgery and laser lithotripsy of bladder stone concomitantly. We discussed options of medical observation with dual medical therapy, he desires to proceed with surgical intervention. As he is a candidate for UroLift based on volume study, desires to proceed. Risks and complications of the procedure were reviewed with him in detail including, but not limited to, bleeding, pain, infection, injury to adjacent organs, urosepsis, possible secondary procedure, chronic pain, possible bladder and urethral calculi. All questions were answered to his satisfaction. He desired to proceed without reservation. DESCRIPTION OF PROCEDURE: After an informed consent was signed, the patient was taken to the operating room, placed in a dorsal lithotomy position with the genital area prepped and draped in the usual surgical sterile fashion. A 21-Finnish cystoscope was utilized. However, there was mild resistance at the meatus. Therefore, we calibrated his urethra from 16-Finnish to 24-Finnish with ease and subsequently scope passed without significant issues. There was no obstructing urethral stricture of concern. Suggestion of early annular narrowing, however, these were wide and not warranting treatment. The prostatic urethra was staged demonstrating bilobar hyperplasia of the prostate. The bladder was entered, which demonstrated the bladder stone in the dependent position measuring about 1 to 1.5 cm on visual inspection. Using a 550 m laser fiber, bladder stone was laser lithotripsy fragments were evacuated with iliac evacuator. We then transition to proceeding with a UroLift implant. The UOs are about 2 to 3 mm proximal to the bladder neck. At this time, we transitioned to the UroLift device using a visual obturator. We subsequently passed it to the level of the bladder and implanted the left lateral lobe saying 1.5 cm proximal to the bladder neck. We passed a total of 2 implants on the left, total of 3 implants on the right, which created a nice anterior channel with resolution of his obstructing lateral lobes. No implant was seen at the level of the bladder neck or involving the bladder mucosa. An 18-Finnish 3-way Hare catheter was inserted and I will monitor his urine output for debris or hematuria and initiate a voiding trial. Hematuria is minimal. He will be discharged with ciprofloxacin for 5 days, Azo p.r.n. He is to resume his BPH medications until few weeks postop under my discretion. Job ID: [id number] [facility]
== END 2019-11-10 13:19 | disposition home or self-care (01) ==
LOC: SDC 07:03
PROVIDERS: ATTEND Urology
PROC: 0T7D8DZ Dilation of Urethra with Intraluminal Device, Via Natural or Artificial Opening Endoscopic (ICD-10-PCS; principal; 2019-11-10)
PROC: 0TCB8ZZ Extirpation of Matter from Bladder, Via Natural or Artificial Opening Endoscopic (ICD-10-PCS; 2019-11-10)
DX: N40.1 Benign prostatic hyperplasia with lower urinary tract symptoms (principal); R39.11 Hesitancy of micturition; R39.14 Feeling of incomplete bladder emptying; R39.12 Poor urinary stream; N21.0 Calculus in bladder; N28.9 Disorder of kidney and ureter, unspecified; N35.911 Unspecified urethral stricture, male, meatal; N20.0 Calculus of kidney; N26.1 Atrophy of kidney (terminal); G47.33 Obstructive sleep apnea (adult) (pediatric); I10 Essential (primary) hypertension; E03.9 Hypothyroidism, unspecified; E11.9 Type 2 diabetes mellitus without complications; M19.90 Unspecified osteoarthritis, unspecified site; G89.29 Other chronic pain; M54.5 Low back pain; G43.909 Migraine, unspecified, not intractable, without status migrainosus; M06.9 Rheumatoid arthritis, unspecified; I25.10 Atherosclerotic heart disease of native coronary artery without angina pectoris; Z79.51 Long term (current) use of inhaled steroids; Z79.82 Long term (current) use of aspirin; Z79.899 Other long term (current) drug therapy; Z88.5 Allergy status to narcotic agent; Z91.02 Food additives allergy status; Z95.1 Presence of aortocoronary bypass graft; Z99.89 Dependence on other enabling machines and devices
CPT/HCPCS: 52317; 82365; 88300; C1758; C1889; C9740; J1956; J2001; J2405; J2704; J3010

== ENCOUNTER 2020-03-29 08:07 | Outpatient (CLI) | payer MEDICARE ==
--- NOTE | 2020-03-29 08:30 | RAD ---
EXAM: Single view of the abdomen HISTORY: Nephrolithiasis COMPARISON: CT abdomen/pelvis 08/12/2019 FINDINGS: Single view of the abdomen shows a nonspecific, nonobstructive bowel gas pattern. Calcifica tions are seen projecting over both renal shadows. The left renal shadow is significantly smaller than the right. The calcification on the left measures 2.0 cm in size. Calcifications on the right me asuring up to 5 mm in size. Degenerative and postsurgical changes are seen in the spine. IMPRESSION: Bilateral nephrolithiasis
== END 2020-03-29 08:08 | disposition home or self-care (01) ==
LOC: BICRAD 08:07
PROVIDERS: ATTEND Urology
DX: N20.0 Calculus of kidney (principal)
CPT/HCPCS: 36415; 74018; 80048; 81001; 87086

== ENCOUNTER 2020-07-20 14:37 | Outpatient (CLI) | payer MEDICARE ==
--- NOTE | 2020-07-20 14:55 | RAD ---
EXAM: XR Abdomen 1 View/KUB PROVIDED CLINICAL HISTORY: Calculus of kidney. COMPARISON: 03/29/[address] abdomen on 04/17/2020 FINDINGS: Upper pole of each renal shadow is mostly obscured due to overlying gas and retained fecal material i n the colon. Again noted are bilateral renal calculi more numerous on the right with larger calculus overlying the inferior pole left renal shadow measuring 2.1 cm and previously measuring 2 cm . Calcifications are again seen overlying the pelvis likely related to combination of phleboliths, vascular calcifications as well as calcifications in the prostate gland. Radiotherapy seeds overlie t he lower pelvis in region of prostate gland. Nonspecific bowel gas pattern is present. No other interval change. IMPRESSION: Bilateral nephrolithiasis similar to prior exam.
== END 2020-07-20 14:38 | disposition home or self-care (01) ==
LOC: BICRAD 14:37
PROVIDERS: ATTEND Urology
DX: N20.0 Calculus of kidney (principal); N40.1 Benign prostatic hyperplasia with lower urinary tract symptoms; R35.0 Frequency of micturition; R31.29 Other microscopic hematuria
CPT/HCPCS: 36415; 74018; 80048; 81001; 87086

== ENCOUNTER 2020-09-15 07:14 | Outpatient (CLI) | payer MEDICARE ==
[2020-09-15 10:52] LABS: Bilirubin Neg (Negative); Blood, Urine 10 (Negative); Clarity Clear (Clear); Glucose, Urine (Dipstick) Normal (Negative); Ketone, Urine Negative (Negative); Leukocyte 25 (Negative); Nitrite Negative (Negative); Protein, Urine (Dipstick) Negative (Neg-Trace); Specific Gravity, Urine 1.015 (1.002-1.036); Urobilinogen Normal mg/dL (Less than 2)
[2020-09-15 10:58] LABS: Hemoglobin 15.4 g/dL (14.0-18.0); Mean Corpuscular HGB CONC 34.4 G/DL (32.0-36.0); Mean Corpuscular Hemoglobin 31.6 PG (27.0-33.0); Mean Corpuscular Volume 91.8 fl (80.0-100.0); Mean Platelet Volume 9.6 fl (7.4-10.4); Platelet Count 184 10x3/uL (130-400); RBC Distribution Width 11.9 % (11.5-14.5); Red Blood Cell (RBC) Count 4.88 10x6/uL (4.40-5.80); White Blood Cell (WBC) Count 6.9 10x3/uL (4.5-11.0)
[2020-09-15 11:15] LABS: Anion Gap 12 mmol/L (10-20); BUN (Urea Nitrogen) 25 mg/dL (8.4-25.7); Calc. Creatinine Clearance 0 mL/min (70-130); Calcium 9.6 mg/dL (7.8-10.44); Carbon Dioxide 27 mmol/L (23-31); Chloride 104 mmol/L (98-107); Glucose 110 mg/dL (83-110); INR-International Normal Ratio 1.1; PTT 29.9 sec (22.0-33.0); Potassium 4.4 mmol/L (3.5-5.1); Prothrombin Time 11.1 sec (9.5-12.1); Sodium 139 mmol/L (136-145)
[2020-09-15 11:26] LABS: RBC/HPF 0-3 HPF (0-3)
[2020-09-15 11:28] LABS: Squamous Epithelial 0-3 HPF (0-3)
[2020-09-15 11:29] LABS: Bacteria/HPF Rare-Few HPF (None Seen)
[2020-09-15 21:23] LABS: SARS-CoV-2 MS2 Positive; SARS-CoV-2 N Gene Negative; SARS-CoV-2 S Gene Negative; SARS-CoV-2 by NAA Not Detected (NotDetected); SARS-CoV-2 orf1ab Negative
== END 2020-09-15 07:15 | disposition home or self-care (01) ==
LOC: LABBT 07:14
PROVIDERS: ATTEND Urology
DX: Z01.818 Encounter for other preprocedural examination (principal); Z12.5 Encounter for screening for malignant neoplasm of prostate; S37.30XA Unspecified injury of urethra, initial encounter; N40.1 Benign prostatic hyperplasia with lower urinary tract symptoms; R31.29 Other microscopic hematuria; N20.0 Calculus of kidney; I10 Essential (primary) hypertension; R35.0 Frequency of micturition; E11.9 Type 2 diabetes mellitus without complications; N26.1 Atrophy of kidney (terminal); I25.10 Atherosclerotic heart disease of native coronary artery without angina pectoris; N21.0 Calculus in bladder; N28.9 Disorder of kidney and ureter, unspecified; N52.9 Male erectile dysfunction, unspecified; Z95.1 Presence of aortocoronary bypass graft; Z80.42 Family history of malignant neoplasm of prostate; Z20.822 Contact with and (suspected) exposure to COVID-19
CPT/HCPCS: 80048; 81001; 85027; 85610; 85730; 87086; 93005; U0003; 87635; 93010

== ENCOUNTER 2020-09-20 06:01 | Day surgery (SDC) | payer MEDICARE ==
[2020-09-19 09:02] VITALS: BMI 31.5
[2020-09-20] MEDS ORDERED: Levofloxacin 500 mg/D5W 100 ml Premix Bag ONE (06:35)
[2020-09-20] MEDS ORDERED: Fentanyl 100 MCG/2 ML VIAL ONE ×3 (06:55→09:18)
[2020-09-20] MEDS ORDERED: Iothalamate Meglumine 60% 50 ML VIAL FS ONE (07:17)
--- NOTE | 2020-09-20 08:19 | RAD ---
KUB INDICATION: Preop evaluation COMPARISON: Prior exam dated July 20, 2020 FINDINGS: Bowel gas: Nonspecific but without overt appearance of obstruction. Lung bases: Not included Additional findings: The nonobstructing renal calculi bilaterally are stable. The largest is a promin ent left renal staghorn calculus measuring approximately 2 cm in its greatest dimension. Osseous structures: Postoperative change of the lumbar spine with laminectomies at L4-5 are stable. IMPRESSION: 1. Stable bilateral nephrolithiasis.
[2020-09-20] MEDS ORDERED: Oxybutynin 5 MG TAB ONE (09:05)
[2020-09-20] MEDS ORDERED: Phenazopyridine HCl 100 MG TAB ONE (09:05)
--- NOTE | 2020-09-20 09:33 | RAD ---
EXAM: XR IVP Retrograde PROVIDED CLINICAL HISTORY: Right ureteral stent placement. Bilateral nephrolithiasis. COMPARISON: 1 view abdomen on 09/20/2020 FINDINGS/IMPRESSION: 23 intraoperative fluoroscopic images of the abdomen are submitted. The forms designer image demonstrates evid ence of bilateral nephrolithiasis. Postoperative changes lower lumbar spine are again seen. Radiotherapy seeds are seen overlying the region of the prostate gland. Right retrograde urogram is o btained which does not demonstrate evidence of hydronephrosis or definitive filling defect. A balloon catheter is present at the level of the distal right ureter and near the right UVJ. Subsequen t imaging demonstrates guide catheter and guidewire in place. Final provided image demonstrates a right ureteral stent in place. Correlation with intraoperative findings is recommended.
[2020-09-20] MEDS ORDERED: Rocuronium Bromide 10 MG/ML (10ML VIAL) ONE (11:30)
[2020-09-20] MEDS ORDERED: PHENYLEPHRINE-NS 100 MCG/ML 10 ML SYRINGE ONE (11:30)
[2020-09-20] MEDS ORDERED: Lidocaine 1% PF 5 ML VIAL ONE (11:30)
[2020-09-20] MEDS ORDERED: Glycopyrrolate 0.2 MG/ML 5 ML SYRINGE ONE (11:30)
[2020-09-20] MEDS ORDERED: PROPOFOL 200 MG/20 ML VIAL ONE (11:30)
[2020-09-20] MEDS ORDERED: Ondansetron PF 4 MG/2 ML Vial ONE (11:30)
[2020-09-20] MEDS ORDERED: Dexamethasone 20 MG/5 ML VIAL ONE (11:30)
--- NOTE | 2020-09-20 11:43 | OP ---
DATE OF PROCEDURE: 09/20/2020 PRIMARY CARE PHYSICIAN: Pooja Banerjee DO PREOPERATIVE DIAGNOSES: 1. A 69-year-old male with multiple right renal calculi: Right punctate 4, right upper pole 3 to 4 mm, mid to lower pole 7 mm, a second right lower pole stone about 10 mm. 2. Left large renal calcific density, nonfunctioning left kidney. 3. History of benign prostatic hyperplasia, status post UroLift. POSTOPERATIVE DIAGNOSES: 1. A 69-year-old male with multiple right renal calculi: Right punctate 4, right upper pole 3 to 4 mm, mid to lower pole 7 mm, a second right lower pole stone about 10 mm. 2. Left large renal calcific density, nonfunctioning left kidney. 3. History of benign prostatic hyperplasia, status post UroLift. PROCEDURES PERFORMED: Cystoscopy, meatal calibration dilatation calibrated to 16-Paraguayan dilated to 26-Paraguayan with [place] sounds, right retrograde pyelogram, 6 x 26 double-J ureteral stent with distal tail in situ, balloon dilatation of the distal ureter, flexible ureteroscopy pyeloscopy laser lithotripsy of multiple renal calculi, modifier 22, retrograde pyelogram. INTRAOPERATIVE FINDINGS: 1. Mild meatal stenosis calibrated to about 16-Paraguayan, dilated to accommodate cystoscope to 26-Paraguayan with ease. 2. Status post UroLift with good anterior channel created. No evidence of exposed implant in the bladder. 3. Right retrograde pyelogram unremarkable. 4. Pyeloscopy demonstrated multiple right renal calculi as well as Memo's plaque consistent with recurrent stone former. SPECIMEN: Stone for chemical analysis. DESCRIPTION OF PROCEDURE: After an informed consent was signed, the patient was taken to the operating room, placed in a dorsal lithotomy position with the genital area prepped and draped in the usual surgical sterile fashion. A 21-Paraguayan cystoscope was utilized for cystoscopy. There was some resistance at the meatus, therefore we did calibrate his meatus, which calibrated to about 16-Paraguayan, subsequently dilated to 26-Paraguayan with [place] sounds atraumatically. Subsequently, the cystoscope was passed without significant issues and there was no evidence of urethral stricture. Status post UroLift findings, with good defect created. No evidence of exposed tab within the bladder or the bladder neck. At this time, the ureteral orifices were identified bilaterally. Normal orthotopic position. An open-ended catheter was utilized to intubate the right UO and a retrograde pyelogram was performed demonstrating normal caliber ureter. The collecting system demonstrated no evidence of hydronephrosis. Preop KUB demonstrates multiple calcific density consistent with the CAT scan. At this time, a 0.035 Sensor wire was placed into the right upper pole and using a 15-Paraguayan, 6-cm balloon dilator, we dilated the intramural ureter atraumatically. Subsequently, a 10-Paraguayan dual-lumen access sheath was passed without significant issues to the level of the proximal ureter and a second safety wire of 0.035 Super Stiff was placed. Over the Super Stiff wire, we placed a 12 x 14-Paraguayan navigator, which passed without significant issues to the level near the UPJ. Flexible ureteroscope was advanced. We used a 273 micron ball-tip fiber. Pyeloscopy demonstrated numerous kidney stones consistent with the CT scan and there were multiple Memo's plaques appreciated. The right upper and mid pole stones were laser lithotripsied first, then we subsequently moved to the lower pole. The lower pole stone was challenging as there was a nidus of an anterior right lower calyceal stone. We, however, spent significant time identifying these stones and laser lithotripsing in an atraumatic manner. We basket extracted those debris that were amendable to be basket extracted and sent for chemical analysis. There were may be some punctate nidus in the right lower pole anterior calyx. However, the limit of the flexible ureteroscope was reached and no further flexion can be obtained, however, it did appear that we did make significant progress in the right lower anterior calyceal stone and most of the stone debris appeared punctate. We surveyed the collecting system, which demonstrated residual nidus, which were punctate caliber, which did not warrant to be basket extracted. We did obtain numerous specimen to be sent for chemical analysis. Approximately 1.0 to 1.6 joules had to be utilized due to dense nature of the stone. The ureter was surveyed, which demonstrated no evidence of ureteral mucosa trauma or stone nidus of concern. Navigator was removed and a 6 x 26 double-J ureteral stent was passed with good coil in the kidney and bladder with distal tail left in situ. Bladder was completely emptied and he tolerated the procedure well and transported to the recovery room in stable condition. He will follow up with me next with KUB 1 hour prior to the appointment. If there is no obvious sediment of concern along the course of the ureter, we will remove his stent under local. Job ID: [id number] [id number]
== END 2020-09-20 10:45 | disposition home or self-care (01) ==
LOC: SDC 06:01
PROVIDERS: ATTEND Urology
PROC: 0TC38ZZ Extirpation of Matter from Right Kidney Pelvis, Via Natural or Artificial Opening Endoscopic (ICD-10-PCS; principal; 2020-09-20)
PROC: 0T768DZ Dilation of Right Ureter with Intraluminal Device, Via Natural or Artificial Opening Endoscopic (ICD-10-PCS; 2020-09-20)
DX: N20.0 Calculus of kidney (principal); N28.9 Disorder of kidney and ureter, unspecified; N35.911 Unspecified urethral stricture, male, meatal; N26.1 Atrophy of kidney (terminal); N52.9 Male erectile dysfunction, unspecified; E11.9 Type 2 diabetes mellitus without complications; E03.9 Hypothyroidism, unspecified; I10 Essential (primary) hypertension; I25.10 Atherosclerotic heart disease of native coronary artery without angina pectoris; K58.9 Irritable bowel syndrome, unspecified; M06.9 Rheumatoid arthritis, unspecified; Z79.899 Other long term (current) drug therapy; Z79.82 Long term (current) use of aspirin; Z96.653 Presence of artificial knee joint, bilateral; Z88.5 Allergy status to narcotic agent; Z91.02 Food additives allergy status
CPT/HCPCS: 74018; 74420; 82365; 88300; J1956; J3010

== ENCOUNTER 2020-09-28 08:01 | Outpatient (CLI) | payer MEDICARE ==
--- NOTE | 2020-09-28 08:52 | RAD ---
SUPINE ABDOMEN: Date: 09/28/2020 HISTORY: Nephrolithiasis. COMPARISON: 09/20/2020. FINDINGS: A double pigtail right ureteral stent has been placed since prior study. There continues to be calcif ications overlying the lower pole of the right kidney, although the number of calcifications overlyin g the right kidney has decreased. The large calculus measuring 2.3 cm overlying the lower pole of the left kidney is unchanged. Images of the pelvis show evidence of prostatectomy and calcifications in the region of the prostate bed and/or bladder adjacent to the pigtail. Bowel gas pattern unremarkable as gas and stool again seen throughout the colon. Postoperative change s in the spine unchanged in appearance. IMPRESSION: Bilateral renal calculi. Right double pigtail ureteral stent has been placed. POS: AGW
== END 2020-09-28 08:02 | disposition home or self-care (01) ==
LOC: BICRAD 08:01
PROVIDERS: ATTEND Urology
DX: N20.0 Calculus of kidney (principal); Z96.0 Presence of urogenital implants
CPT/HCPCS: 74018

== ENCOUNTER 2022-04-01 08:05 | Outpatient (CLI) | payer MEDICARE | END 2022-04-01 08:06 | disposition home or self-care (01) | LOC: CT 08:05 | PROVIDERS: ATTEND Urology | DX: N20.0 Calculus of kidney (principal); N26.1 Atrophy of kidney (terminal) | CPT/HCPCS: 74176 ==

== ENCOUNTER 2022-07-02 12:28 | Outpatient (CLI) | payer MEDICARE ==
[~2022-07-02 12:28] MED LIST changes: -Furosemide 40 MG/4 ML VIAL ONE; +Magnevist 469MG/ML 20 ML VIAL ONE
== END 2022-07-02 12:29 | disposition home or self-care (01) ==
LOC: TBSIIMAG 12:28
PROVIDERS: ATTEND Urology
DX: C61 Malignant neoplasm of prostate (principal)
CPT/HCPCS: 72197; A9579

== ENCOUNTER 2022-07-18 10:32 | Outpatient (CLI) | payer MEDICARE | END 2022-07-18 10:33 | disposition home or self-care (01) | LOC: NM 10:32 | PROVIDERS: ATTEND Internal Medicine | DX: C61 Malignant neoplasm of prostate (principal) | CPT/HCPCS: 78306; A9503 ==

== ENCOUNTER 2023-05-14 11:26 | Outpatient (CLI) | payer MEDICARE | END 2023-05-14 11:27 | disposition home or self-care (01) | LOC: RAD 11:26 | PROVIDERS: ATTEND Internal Medicine Rheumatology | DX: M25.551 Pain in right hip (principal); M25.572 Pain in left ankle and joints of left foot; M25.571 Pain in right ankle and joints of right foot ==

== ENCOUNTER 2023-05-26 09:29 | Outpatient (CLI) | payer MEDICARE | END 2023-05-26 09:30 | disposition home or self-care (01) | LOC: BICCT 09:29 | PROVIDERS: ATTEND Urology | DX: C61 Malignant neoplasm of prostate (principal); N20.0 Calculus of kidney | CPT/HCPCS: 74176 ==

== ENCOUNTER 2023-06-26 08:56 | Outpatient (CLI) | payer MEDICARE ==
[2023-06-26 09:48] LABS: Bilirubin Neg (Negative); Blood, Urine Negative (Negative); Clarity Clear (Clear); Glucose, Urine (Dipstick) Normal (Negative); Ketone, Urine Negative (Negative); Leukocyte Negative (Negative); Nitrite Negative (Negative); Protein, Urine (Dipstick) 15 mg/dl (Neg-Trace); Urobilinogen Normal mg/dL (Less than 2)
[2023-06-26 09:52] LABS: Hematocrit 40.3 % (38.8-50.0); Hemoglobin 13.8 g/dL (13.5-17.5); Mean Corpuscular HGB CONC 34.2 g/dL (32.0-36.0); Mean Corpuscular Hemoglobin 31.1 pg (27.0-33.0); Mean Corpuscular Volume 90.8 fl (81.2-95.1); Mean Platelet Volume 9.3 fl (7.4-10.4); Platelet Count 176 10x3/uL (150-450); RBC Distribution Width 12.8 % (11.5-14.5); Red Blood Cell (RBC) Count 4.44 10x6/uL (4.32-5.72); White Blood Cell (WBC) Count 5.3 10x3/uL (3.5-10.5)
[2023-06-26 09:55] LABS: Bacteria/HPF None Seen HPF (None Seen); RBC/HPF None Seen HPF (0-3); Squamous Epithelial 0-3 HPF (0-3); WBC/HPF None Seen HPF (0-3)
[2023-06-26 10:22] LABS: Anion Gap 15 mmol/L (10-20); BUN (Urea Nitrogen) 24 mg/dL (8.4-25.7); Calc. Creatinine Clearance 0 mL/min (70-130); Calcium 9.6 mg/dL (7.8-10.44); Carbon Dioxide 22 mmol/L (23-31); Chloride 105 mmol/L (98-107); Estimated GFR 51; Glucose 174 mg/dL (83-110); Potassium 4.2 mmol/L (3.5-5.1); Sodium 138 mmol/L (136-145)
[2023-06-26 10:23] LABS: PTT 28.7 sec (22.0-33.0); Prothrombin Time 11.1 sec (9.5-12.1)
== END 2023-06-26 08:57 | disposition home or self-care (01) ==
LOC: LABBT 08:56
PROVIDERS: ATTEND Urology
DX: Z01.812 Encounter for preprocedural laboratory examination (principal); E11.65 Type 2 diabetes mellitus with hyperglycemia; Z12.5 Encounter for screening for malignant neoplasm of prostate; C61 Malignant neoplasm of prostate; N20.0 Calculus of kidney; N40.1 Benign prostatic hyperplasia with lower urinary tract symptoms; R79.89 Other specified abnormal findings of blood chemistry; I25.10 Atherosclerotic heart disease of native coronary artery without angina pectoris; R97.20 Elevated prostate specific antigen [PSA]; N26.1 Atrophy of kidney (terminal); N28.9 Disorder of kidney and ureter, unspecified; R31.29 Other microscopic hematuria; I10 Essential (primary) hypertension; R35.0 Frequency of micturition; N52.9 Male erectile dysfunction, unspecified; R23.2 Flushing; Z95.1 Presence of aortocoronary bypass graft; Z80.42 Family history of malignant neoplasm of prostate
CPT/HCPCS: 80048; 81001; 85027; 85610; 85730; 87086

== ENCOUNTER 2023-07-09 05:59 | Day surgery (SDC) | payer MEDICARE ==
[2023-06-26 09:31] VITALS: BMI 35.4
== END 2023-07-09 07:25 | disposition home or self-care (01) ==
LOC: SDC 05:59
PROVIDERS: ATTEND Urology
DX: N20.0 Calculus of kidney (principal); C61 Malignant neoplasm of prostate; R31.29 Other microscopic hematuria; E11.65 Type 2 diabetes mellitus with hyperglycemia; I10 Essential (primary) hypertension; N40.1 Benign prostatic hyperplasia with lower urinary tract symptoms; R35.0 Frequency of micturition; N26.1 Atrophy of kidney (terminal); I25.10 Atherosclerotic heart disease of native coronary artery without angina pectoris; Z79.85 Long-term (current) use of injectable non-insulin antidiabetic drugs; Z53.8 Procedure and treatment not carried out for other reasons
CPT/HCPCS: 36416; 74018

== ENCOUNTER 2023-07-14 06:40 | Day surgery (SDC) | payer MEDICARE ==
[2023-07-11 10:29] VITALS: BMI 35.4
[2023-07-14] MEDS ORDERED: LevoFLOXacin 500 mg/D5W 100 ML BAG ONE (07:06)
[2023-07-14] MEDS ORDERED: Lidocaine 1% MPF 2 ML VIAL ONE (07:06)
[2023-07-14] MEDS ORDERED: fentaNYL PF 100 MCG/2 ML SYRINGE ONE (07:12)
[2023-07-14] MEDS ORDERED: Iopamidol 30 ML ONE (07:13)
[2023-07-14] MEDS ORDERED: Ondansetron PF 4 MG/2 ML Vial ONE (07:37)
[2023-07-14] MEDS ORDERED: Lidocaine 1% PF 5 ML VIAL ONE (07:37)
[2023-07-14] MEDS ORDERED: Glycopyrrolate 0.2 MG/ML 5 ML SYRINGE ONE (07:37)
[2023-07-14] MEDS ORDERED: Dexamethasone 20 MG/5 ML VIAL ONE (07:37)
[2023-07-14] MEDS ORDERED: NEOSTIGMINE 3 MG/3 ML SYR 3 MG/3 ML SYRINGE ONE (07:37)
[2023-07-14] MEDS ORDERED: PROPOFOL 200 MG/20 ML VIAL ONE (07:37)
[2023-07-14] MEDS ORDERED: Rocuronium Bromide 10 MG/ML (10ML VIAL) ONE (07:37)
[2023-07-14] MEDS ORDERED: Phenazopyridine HCl 100 MG TAB ONE (10:10)
== END 2023-07-14 12:05 | disposition home or self-care (01) ==
LOC: SDC 06:40
PROVIDERS: ATTEND Urology
PROC: 0TC08ZZ Extirpation of Matter from Right Kidney, Via Natural or Artificial Opening Endoscopic (ICD-10-PCS; principal; 2023-07-14)
PROC: 0T768DZ Dilation of Right Ureter with Intraluminal Device, Via Natural or Artificial Opening Endoscopic (ICD-10-PCS; 2023-07-14)
DX: N20.0 Calculus of kidney (principal); E03.9 Hypothyroidism, unspecified; I10 Essential (primary) hypertension; Z79.82 Long term (current) use of aspirin; Z79.890 Hormone replacement therapy; Z79.899 Other long term (current) drug therapy; Z88.5 Allergy status to narcotic agent
CPT/HCPCS: 52356; 74018; 74420; 82365; 82962; C1747; C1769; C2617; 36416; 88300; J1100; J1956; J2405; J2704; Q9967

== ENCOUNTER 2024-01-13 11:58 | Outpatient (CLI) | payer MEDICARE | END 2024-01-13 11:59 | disposition home or self-care (01) | LOC: ULT 11:58 | PROVIDERS: ATTEND Urology | DX: N20.0 Calculus of kidney (principal); N26.1 Atrophy of kidney (terminal) | CPT/HCPCS: 74018; 76770 ==

== ENCOUNTER 2024-08-18 14:25 | Outpatient (CLI) | payer MEDICARE | END 2024-08-18 14:26 | disposition home or self-care (01) | LOC: ULT 14:25 | PROVIDERS: ATTEND Internal Medicine Rheumatology | DX: R22.42 Localized swelling, mass and lump, left lower limb (principal) ==

== ENCOUNTER 2024-09-09 09:29 | Outpatient (CLI) | payer MEDICARE ==
[2024-09-09] MEDS ORDERED: Sodium Bicarbonate 2.5 MEQ/5 ML SDV ONE (09:37)
[2024-09-09] MEDS ORDERED: Iopamidol 30 ML ONE (09:37)
[2024-09-09] MEDS ORDERED: Ropivacaine 0.5% HCl/PF (150 MG/30 ML VIAL) IM SCH (09:45)
[2024-09-09] MEDS ORDERED: methylPREDNISolone Acetate 80 mg (1 mL) VIAL IM SCH (09:45)
== END 2024-09-09 09:30 | disposition home or self-care (01) ==
LOC: RAD 09:29
PROVIDERS: ATTEND Student in an Organized Health Care Education/Training Program
DX: M16.11 Unilateral primary osteoarthritis, right hip (principal)
CPT/HCPCS: 20610; 77002; J1040; J2795; Q9967